=== PATIENT | male | born 1940 | race Caucasian/White ===

== ENCOUNTER 2017-06-17 11:24 | Inpatient (IN) | payer MEDICARE, OTHER ==
[2017-06-17] MEDS ORDERED: methylPREDNISolone Sod Succ/PF 125 MG/2 ML VIAL ONE (12:15)
[2017-06-17 12:25] LABS: #Lymphocytes 0.8 thou/uL (1.20-3.40); #Monocytes 1.6 thou/uL (0.11-0.59); #Neutrophils 14.8 thou/uL (1.40-6.50); %Basophils 0.1 % (0.0-1.0); %Eosinophils 0.2 % (0.0-10.0); %Lymphocytes 4.5 % (21.0-51.0); %Monocytes 9.4 % (0.0-10.0); %Neutrophils 85.8 % (42.0-75.0); Hemoglobin 12.5 g/dL (14.0-18.0); Mean Corpuscular HGB CONC 32.7 g/dL (32.0-36.0); Mean Corpuscular Hemoglobin 30.1 pg (27.0-31.0); Mean Corpuscular Volume 92.1 fl (80.0-94.0); Mean Platelet Volume 6.8 fL (7.4-10.4); Platelet Count 347 thou/uL (130-400); RBC Distribution Width 11.9 % (11.5-14.5); Red Blood Cell (RBC) Count 4.16 mill/uL (4.70-6.10); White Blood Cell (WBC) Count 17.2 thou/uL (4.8-10.8)
[2017-06-17 12:49] LABS: ALT (SGPT) 20 U/L (8-55); AST (SGOT) 30 U/L (5-34); Albumin 3.6 g/dL (3.4-4.8); Alkaline Phosphatase 73 U/L (40-150); Anion Gap 15 mmol/L (10-20); BUN (Urea Nitrogen) 19 mg/dL (8.4-25.7); Bilirubin, Total 0.5 mg/dL (0.2-1.2); CK (CPK) 133 U/L (30-200); CKMB 3.3 ng/mL (0-6.6); Calc. Creatinine Clearance 0 mL/min (70-130); Calcium 9.2 mg/dL (7.8-10.44); Carbon Dioxide 26 mmol/L (23-31); Chloride 94 mmol/L (98-107); Estimated GFR-MDRD 65; Globulin 3.8 g/dL (2.4-3.5); Glucose 126 mg/dL (83-110); Potassium 4.7 mmol/L (3.5-5.1); Protein, Total 7.4 g/dL (5.8-8.1); Sodium 130 mmol/L (136-145); Troponin I 0.028 ng/mL (< 0.028)
--- NOTE | 2017-06-17 12:52 | RAD ---
CHEST 1 VIEW: HISTORY: Dyspnea. COMPARISON: Chest radiograph 02/04/16. FINDINGS: Chronic-appearing markings in the lung bases. No pneumothorax. No acute osseous abnormality. Cardiac silhouette and mediastinal contours are within normal limits. IMPRESSION: Chronic lung changes. No acute intrathoracic abnormality. POS: [facility]
--- NOTE | 2017-06-17 17:00 | HP ---
PRIMARY CARE PHYSICIAN: Dr. John Nix. PRIMARY CLINICAL MASSAGE THERAPIST: Dr. Villalta. REASON FOR ADMISSION: COPD exacerbation. HISTORY OF PRESENT ILLNESS: A 77-year-old male who has underlying history of COPD who presented to emergency room with the complaint of increasing shortness of breath. Patient reports that he is sick for the last 10 days. He was having increasing shortness of breath, cough, and upper respiratory symptoms. Patient reports that at this time, he was exposed to pollen and after that allergy started. He was using Claritin and Benadryl p.r.n. basis. He was using his inhaler and nebulizer therapy at home, but symptoms were not improving. Day by day, he was getting worse. He was having fever of up to T- maximum 101 at one time, but most of the days, his fever was running in 100 to 99. The patient was not able to get deep breath in and he was feeling more and more short of breath. Symptoms were getting more and more worse during daytime as well as nighttime and that is why he decided to come to emergency room for evaluation. Patient reports that he is normally able to ambulate without any getting shortness of breath, but for last 5 days he is having difficulty ambulation because of shortness of breath. He denies any hemoptysis. He denies any lower extremity edema. He denies any calf tenderness. He denies any chest pain. He denies any hemoptysis. He denies any nausea, vomiting, diarrhea, UTI symptoms. He denies any abdominal pain, hematochezia, or melena. REVIEW OF SYSTEMS: The following complete review of systems was negative, unless otherwise mentioned in the HPI or below: Constitutional: Weight loss or gain, ability to conduct usual activities. Skin: Rash, itching. Eyes: Double vision, pain. ENT/Mouth: Nose bleeding, neck stiffness, pain, tenderness. Cardiovascular: Palpitations, dyspnea on exertion, orthopnea. Respiratory: Shortness of breath, wheezing, cough, hemoptysis, fever or night sweats. Gastrointestinal: Poor appetite, abdominal pain, heartburn, nausea, vomiting, constipation, or diarrhea. Genitourinary: Urgency, frequency, dysuria, nocturia. Musculoskeletal: Pain, swelling. Neurologic/Psychiatric: Anxiety, depression. Allergy/Immunologic: Skin rash, bleeding tendency. Please see my HPI for pertinent positive and negative. All other review of systems reviewed and negative except as mentioned in the HPI. ALLERGIES: No known drug allergy. CURRENT HOME MEDICATIONS: ProAir HFA 2 puffs q.6 hourly p.r.n., aspirin 81 mg p.o. daily, Pulmicort nebulization twice daily, enalapril with hydrochlorothiazide 10/25 one tablet p.o. daily, formoterol 20 mcg nebulization b.i.d., DuoNeb q.6 hourly, Crestor 20 mg p.o. at bedtime, Flomax 0.4 mg p.o. daily. PAST MEDICAL HISTORY: Hypertension, COPD, chronic respiratory failure using oxygen on as needed basis, hypertension, colon cancer, history of hemorrhoid and coronary artery disease. PAST SURGICAL HISTORY: Cardiac catheterization with stent placement, colon cancer removed, hernia repair, bilateral cataract surgery. PAST PSYCHIATRIC HISTORY: Reviewed and negative. SOCIAL HISTORY: Patient is . He is a former smoker. He quit smoking several years ago. He denies any alcohol abuse. He denies any other illicit drug abuse. FAMILY HISTORY: Negative for GI malignancy. Coronary artery disease runs among several family members. No family history of stroke. EMERGENCY ROOM COURSE: Patient is given IV fluid, Solu-Medrol 125 mg, Levaquin 750 mg, DuoNeb therapy. PHYSICAL EXAMINATION: VITAL SIGNS: On arrival, blood pressure 159/66, pulse 104, respiratory rate 25 , temperature 99.1, saturation 99% and weight 72.5 kilograms. GENERAL: The patient is currently alert, awake, no obvious acute distress. HEAD: Normocephalic, atraumatic. EYES: Pupils round, reactive to light. Extraocular muscle intact. ENT: Oropharynx within normal limits. Moist mucous membranes. No oral lesion , no pharyngeal erythema, no exudate. NECK: Supple, no JVD, no thyromegaly, no carotid bruit, no meningeal signs of irritation. LUNGS: End expiratory wheezing heard. No accessory muscles of respiration in use. Air entry reduced on both sides. CARDIAC: S1 and S2 regular. No murmur, no gallop, no rub. ABDOMEN: Soft, bowel sounds present, nontender, nondistended. No organomegaly , no mass, no suprapubic tenderness. BACK: Examination unremarkable, no CVA tenderness. EXTREMITIES: Upper extremity passive movements of all joints are normal. Lower extremities: No edema. Good peripheral pulsation. SKIN: No skin rash. HEMATOLOGICAL SYSTEM: No lymphadenopathy. PSYCHIATRIC: Normal affect. IMAGING DATA AND SIGNIFICANT LABORATORY DATA: 1. EKG showing sinus tachycardia, incomplete right bundle branch block pattern , nonspecific ST-T changes. 2. Chest x-ray based on my review, chronic lung changes, COPD type of changes, but no acute process. 3. CBC: WBC is 17.2, hemoglobin 12.5, platelets 347 with left shift. 4. BMP: Sodium 130, potassium 4.7, chloride 94, carbon dioxide 26, BUN 19, creatinine 1.11, glucose 126, calcium 9.2. 5. LFT: AST 30, ALT 20, alkaline phosphatase 73, albumin is 3.6. CK 133, CK- MB 3.3, troponin I 0.028, BNP 33.0. ASSESSMENT AND PLAN/IMPRESSION: 1. Acute on chronic obstructive pulmonary disease exacerbation. The patient's chronic obstructive pulmonary disease flareup is caused by allergy/upper respiratory infection. At this point, patient will be admitted to telemetry floor. We will continue DuoNeb q.4 hourly and p.r.n. basis Solu-Medrol 40 mg IV q.6 hourly, Pulmicort nebulization twice daily and Dulera two puffs inhalation b.i.d. We will also continue empiric antibiotic therapy with Levaquin 750 mg IV daily and Mucinex 600 mg 3 times daily. We will also provide symptomatic treatment. We will also continue oxygen to maintain saturation above 92%. 2. Acute/chronic respiratory failure. We will continue oxygen to maintain saturation above 92%. 3. Dyslipidemia. Continue Crestor 20 mg p.o. at bedtime. 4. Benign enlargement of prostate. Continue Flomax 0.4 mg p.o. daily. 5. Hypertension. Continue enalapril 10 mg daily and hydrochlorothiazide 25 mg p.o. daily. 6. Hyponatremia likely related with hydrochlorothiazide versus chronic lung disease. We will repeat BMP tomorrow. 7. Leukocytosis, likely related with stress versus underlying infection. The patient is already on antibiotic therapy and we will repeat CBC tomorrow. 8. Deep venous thrombosis prophylaxis, Lovenox 40 mg subcu daily. 9. Gastrointestinal prophylaxis, Protonix 40 mg p.o. daily. CODE STATUS: The patient is FULL CODE. The patient's is surrogate decision maker. Disposition plan based on clinical course. We are expecting patient's stay in hospital more than 2 midnights. Plan of care discussed with the patient in detail. AVELINAD
[2017-06-17 17:04] LABS: Troponin I 0.028 ng/mL (< 0.028)
[2017-06-17] MEDS ORDERED: Mag-Al 1200 mg/1200 mg/30 ML UDCUP PO PRN (17:44)
[2017-06-17] MEDS ORDERED: hydrALAZINE 20 MG/ML VIAL SLOW IVP PRN (17:44)
[2017-06-17] MEDS ORDERED: cloNIDine 0.1 MG TAB PO PRN (17:44)
[2017-06-17] MEDS ORDERED: Milk Of Magnesia 30 ML UDCUP PO PRN (17:44)
[2017-06-17] MEDS ORDERED: Ondansetron ODT 4 MG TAB PO PRN (17:44)
[2017-06-17] MEDS ORDERED: HYDROcodone/Acetaminophen 5/325 mg Tablet PO PRN (17:44)
[2017-06-17] MEDS ORDERED: Loperamide HCl 2 MG CAP PO PRN (17:44)
[2017-06-17] MEDS ORDERED: Ondansetron HCl/PF 4 MG/2 ML Vial IVP PRN (17:44)
[2017-06-17] MEDS ORDERED: Chloraseptic Spray 180 ml Bottle PO PRN (17:44)
[2017-06-17] MEDS ORDERED: Sodium Chloride 0.65% Nasal 44 ML BOT EA NARE PRN (17:44)
[2017-06-17] MEDS ORDERED: Senokot 8.6 MG TAB PO PRN (17:44)
[2017-06-17] MEDS ORDERED: Zolpidem Tartrate 5 MG TAB PO PRN (17:44)
[2017-06-17] MEDS ORDERED: Artificial Tears 18 DROP/0.9 ML EA EYE PRN (17:44)
[2017-06-17] MEDS ORDERED: Eucerin (Mineral Oil/Petrolatum,White) 30 gm Jar TOP PRN (17:44)
[2017-06-17] MEDS ORDERED: Acetaminophen 325 MG TAB PO PRN (17:44)
[2017-06-17] MEDS ORDERED: Loratadine 10 MG TAB PO PRN (17:44)
[2017-06-17 18:13] VITALS: BMI 24.1
[2017-06-17] MEDS: Mometasone/Formoterol 120 PUFF INHALER INH SCH (18:50)
[2017-06-17] MEDS: Budesonide 0.5 MG/2 ML NEB INH SCH (18:52)
[2017-06-17] MEDS ORDERED: Sodium Chloride 0.9% 10 ML ONE (18:59)
[2017-06-17 19:24] LABS: Bilirubin Negative (Negative); Blood, Urine Negative (Negative); Clarity CLEAR (Clear); Glucose, Urine (Dipstick) Negative (Negative); Leukocyte Negative (Negative); Nitrite Negative (Negative); Protein, Urine (Dipstick) Negative (Neg-Trace); Specific Gravity, Urine 1.011 (1.002-1.036); Urobilinogen 0.2 mg/dL (0.2-1.0)
[2017-06-17 19:27] LABS: Bacteria/HPF None Seen HPF (None Seen); Hyaline Casts/LPF 0-3 HYALINE CAST LPF (0-3 Hyaline); RBC/HPF 0-3 HPF (0-3); Squamous Epithelial None Seen HPF (0-3)
[2017-06-17 19:32] LABS: Troponin I 0.019 ng/mL (< 0.028)
[2017-06-17] MEDS: guaiFENesin ER 600 MG TAB PO SCH (20:08)
[2017-06-17] MEDS: Rosuvastatin 20 MG TAB PO SCH (20:10)
[2017-06-18 05:58] LABS: #Lymphocytes 0.6 thou/uL (1.20-3.40); #Monocytes 0.4 thou/uL (0.11-0.59); #Neutrophils 8.6 thou/uL (1.40-6.50); %Eosinophils 0.2 % (0.0-10.0); %Lymphocytes 6.5 % (21.0-51.0); %Monocytes 4.2 % (0.0-10.0); %Neutrophils 89.2 % (42.0-75.0); Hemoglobin 10.7 g/dL (14.0-18.0); Mean Corpuscular HGB CONC 34.1 g/dL (32.0-36.0); Mean Corpuscular Hemoglobin 31.3 pg (27.0-31.0); Mean Corpuscular Volume 91.6 fl (80.0-94.0); Mean Platelet Volume 6.6 fL (7.4-10.4); Platelet Count 332 thou/uL (130-400); RBC Distribution Width 11.7 % (11.5-14.5); Red Blood Cell (RBC) Count 3.42 mill/uL (4.70-6.10); White Blood Cell (WBC) Count 9.6 thou/uL (4.8-10.8)
[2017-06-18 06:27] LABS: Anion Gap 9 mmol/L (10-20); BUN (Urea Nitrogen) 21 mg/dL (8.4-25.7); Calc. Creatinine Clearance 66 mL/min (70-130); Calcium 8.7 mg/dL (7.8-10.44); Carbon Dioxide 27 mmol/L (23-31); Chloride 98 mmol/L (98-107); Estimated GFR-MDRD 72; Glucose 159 mg/dL (83-110); Potassium 3.4 mmol/L (3.5-5.1); Sodium 131 mmol/L (136-145)
[2017-06-18] MEDS: Budesonide 0.5 MG/2 ML NEB INH SCH ×2 (07:37→19:10)
[2017-06-18] MEDS: Mometasone/Formoterol 120 PUFF INHALER INH SCH ×2 (07:40→19:10)
[2017-06-18] MEDS: Tamsulosin HCl 0.4 MG CAP PO SCH (08:01)
[2017-06-18] MEDS: guaiFENesin ER 600 MG TAB PO SCH ×3 (08:01→20:44)
[2017-06-18] MEDS: Enoxaparin Sodium 40 MG/0.4 ML SYRINGE SC SCH (08:09)
[2017-06-18] MEDS: Hydrochlorothiazide 25 MG TAB PO SCH (08:09)
--- NOTE | 2017-06-18 09:58 | PDOC.PN ---
- Subjective Encounter Start Date: 06/18/17 Encounter Start Time: 07:00 -: old records requested/rev Pt has cough, dyspnea, slight better but still not normal for him, no fever - Objective Resuscitation Status: Resuscitation Status FULL:Full Resuscitation MAR Reviewed: Yes Vital Signs & Weight: Vital Signs (12 hours) Temp Pulse Resp BP BP Pulse Ox 06/18/17 08:08 107/56 L 06/18/17 07:40 105 H 20 91 L 06/18/17 07:37 105 H 20 91 L 06/18/17 04:00 99 F 61 16 112/47 L 91 L 06/18/17 02:57 88 12 06/17/17 23:00 88 12 Weight Weight 163 lb 8 oz I&O: 06/17/17 06/18/17 06/19/17 06:59 06:59 06:59 Intake Total 240 Output Total 100 Balance 140 Result Diagrams: 06/18/17 05:24 06/18/17 05:24 Phys Exam - Physical Examination Constitutional: NAD HEENT: PERRLA, moist MMs, sclera anicteric Neck: no JVD, supple Respiratory: wheezing present reduced air entry Cardiovascular: RRR, no significant murmur, no rub Gastrointestinal: soft, non-tender, no distention, positive bowel sounds Musculoskeletal: no edema, pulses present Neurological: non-focal, normal sensation, moves all 4 limbs Lymphatic: no nodes Psychiatric: normal affect, A&O x 3 Skin: no rash, normal turgor Dx/Plan (1) COPD exacerbation Code(s): J44.1 - CHRONIC OBSTRUCTIVE PULMONARY DISEASE W (ACUTE) EXACERBATION Status: Acute (2) Hypokalemia Code(s): E87.6 - HYPOKALEMIA Status: Acute (3) Hyponatremia Code(s): E87.1 - HYPO-OSMOLALITY AND HYPONATREMIA Status: Acute (4) Leucocytosis Code(s): D72.829 - ELEVATED WHITE BLOOD CELL COUNT, UNSPECIFIED Status: Acute (5) BPH (benign prostatic hyperplasia) Code(s): N40.0 - BENIGN PROSTATIC HYPERPLASIA WITHOUT LOWER URINRY TRACT SYMP Status: Chronic (6) CAD (coronary artery disease) Code(s): I25.10 - ATHSCL HEART DISEASE OF [place] CORONARY ARTERY W/O ANG PCTRS Status: Chronic (7) Hypertension Code(s): I10 - ESSENTIAL (PRIMARY) HYPERTENSION Status: Chronic - Plan cont current plan of care, continue antibiotics, respiratory therapy * continue duoneb, pulmicort, solumedrol, levaquin, mucinex, * replace potassium * pulmonary consulted * medication reviewed as below * symptomatic treatment * home medication reconciled * monitor oxygen level . Review of Systems - Review of Systems Constitutional: negative: fever, chills, sweats, weakness, malaise, other Eyes: negative: Pain, Vision Change, Conjunctivae Inflammation, Eyelid Inflammation, Redness, Other Respiratory: Cough, Shortness of Breath, SOB with Excertion, Wheezing. negative : Dry, Hemoptysis, Pleuritic Pain, Sputum Cardiovascular: negative: chest pain, palpitations, orthopnea, paroxysmal nocturnal dyspnea, edema, light headedness, other Gastrointestinal: negative: Nausea, Vomiting, Abdominal Pain, Diarrhea, Constipation, Melena, Hematochezia, Other Genitourinary: negative: Dysuria, Frequency, Incontinence, Hematuria, Retention , Other Musculoskeletal: negative: Neck Pain, Shoulder Pain, Arm Pain, Back Pain, Hand Pain, Leg Pain, Foot Pain, Other Skin: negative: Rash, Lesions, Gavin, Bruising, Other - Medications/Allergies Allergies/Adverse Reactions: Allergies Allergy/AdvReac Type Severity Reaction Status Date / Time No Known Drug Allergies Allergy Verified 06/17/17 17:49 Medications: Current Medications Acetaminophen (Tylenol) 650 mg PO Q4H PRN PRN Reason: Headache/Fever or Pain Hydrocodone Bitart/Acetaminophen ([place] 5/325) 1 tab PO Q4H PRN PRN Reason: Moderate Pain (4-6) Al Hydroxide/Mg Hydroxide (Maalox) 30 ml PO Q6H PRN PRN Reason: Heartburn or Indigestion Albuterol/Ipratropium (Duoneb) 3 ml NEB [id number] [facility] Last Admin: 06/18/17 07:37 Dose: 3 ml Albuterol/Ipratropium (Duoneb) 3 ml NEB [id number] PRN PRN Reason: SOB &/or Wheezing Artificial Tears (Tears Naturale) 0 drop EA EYE PRN PRN PRN Reason: Dry Eyes Aspirin (Aspirin Chewable) 81 mg PO DAILY [facility] Last Admin: 06/18/17 08:01 Dose: 81 mg Budesonide (Pulmicort Neb Solution) 0.5 mg INH BID-RT [facility] Last Admin: 06/18/17 07:37 Dose: 0.5 mg Clonidine (Catapres) 0.1 mg PO Q4H PRN PRN Reason: Systolic BP > 180 Enalapril Maleate (Vasotec) 10 mg PO DAILY [facility] Enoxaparin Sodium (Lovenox) 40 mg SC 0900 [facility] Last Admin: 06/18/17 08:09 Dose: Not Given Finasteride (Proscar) 5 mg PO DAILY [facility] Guaifenesin (Mucinex) 600 mg PO TID [facility] Last Admin: 06/18/17 08:01 Dose: 600 mg Hydralazine HCl (Apresoline) 10 mg SLOW IVP Q4H PRN PRN Reason: Systolic BP > 180 Hydrochlorothiazide (Hydrochlorothiazide) 12.5 mg PO DAILY [facility] Last Admin: 06/18/17 08:09 Dose: Not Given Levofloxacin 750 mg/ Device 150 mls @ 100 mls/hr IVPB 1200 [facility] Loperamide HCl (Imodium) 2 mg PO PRN PRN PRN Reason: Diarrhea/Loose Stools Loratadine (Claritin) 10 mg PO DAILYPRN PRN PRN Reason: Sinus Symptoms Magnesium Hydroxide (Milk Of Magnesium) 30 ml PO DAILYPRN PRN PRN Reason: Constipation Methylprednisolone Sodium Succinate (Solu-Medrol) 40 mg IVP Q6HR [facility] Last Admin: 06/18/17 05:18 Dose: 40 mg Mineral Oil/White Petrolatum (Eucerin Cream) 0 gm TOP BIDPRN PRN PRN Reason: Dry Skin Mometasone Furoate/Formoterol Fumar (Dulera 200 Mcg/5 Mcg Inhaler) 2 puff INH BID-RT [facility] Last Admin: 06/18/17 07:40 Dose: 2 puff Ondansetron HCl (Zofran Odt) 4 mg PO Q6H PRN PRN Reason: Nausea/Vomiting Ondansetron HCl (Zofran) 4 mg IVP Q6H PRN PRN Reason: Nausea/Vomiting Pantoprazole Sodium (Protonix) 40 mg PO DAILY [facility] Last Admin: 06/18/17 08:02 Dose: 40 mg Phenol (Chloraseptic [place] 180 Ml Bot) 0 ml PO PRN PRN PRN Reason: Sore Throat Rosuvastatin Calcium (Crestor) 20 mg PO [facility] Last Admin: 06/17/17 20:10 Dose: Not Given Senna (Senokot) 2 tab PO HSPRN PRN PRN Reason: Constipation Sodium Chloride ([place] Nasal [place] 0.65%) 0 ml EA NARE QIDPRN PRN PRN Reason: Nasal Congestion Tamsulosin HCl (Flomax) 0.4 mg PO DAILY [facility] Last Admin: 06/18/17 08:01 Dose: 0.4 mg Zolpidem Tartrate (Ambien) 5 mg PO HSPRN PRN PRN Reason: Insomnia
[2017-06-18] MEDS ORDERED: Potassium Chloride 20 MEQ TAB PO SCH (10:00)
[2017-06-18] MEDS: Finasteride 5 MG TAB PO SCH (12:12)
[2017-06-18] MEDS: Rosuvastatin 20 MG TAB PO SCH (17:47)
[2017-06-19] MEDS: Mometasone/Formoterol 120 PUFF INHALER INH SCH (06:17)
[2017-06-19] MEDS: Budesonide 0.5 MG/2 ML NEB INH SCH (06:18)
[2017-06-19] MEDS: predniSONE 20 MG TAB PO SCH (08:26)
[2017-06-19] MEDS: guaiFENesin ER 600 MG TAB PO SCH ×2 (08:27→20:00)
[2017-06-19] MEDS: Enoxaparin Sodium 40 MG/0.4 ML SYRINGE SC SCH (08:28)
[2017-06-19] MEDS: Hydrochlorothiazide 25 MG TAB PO SCH (08:29)
[2017-06-19] MEDS: Tamsulosin HCl 0.4 MG CAP PO SCH (08:32)
[2017-06-19] MEDS ORDERED: Finasteride 5 MG TAB PO SCH (09:00)
--- NOTE | 2017-06-19 09:39 | CON ---
DATE OF CONSULTATION: 06/18/2017 SERVICE: Pulmonary Medicine. REASON FOR CONSULTATION: Chronic obstructive pulmonary disease exacerbation. HISTORY OF PRESENT ILLNESS: The patient is a 77-year-old white male with profound COPD. He was in his usual state of health when he had onset of increasing congestion in the face. Ultimately after a period of about a week, it went down into his chest. He started having increasing dyspnea on exertion and got to the point where he could barely make it across the room. He presented to the emergency department and was subsequently admitted for COPD exacerbation. He denies any current fevers, chills, nausea or vomiting. He did have some low grade fever. He has not had any night sweats. He is not coughing up any blood, but the character of his sputum is increased, and changed to green. PHYSICAL EXAMINATION: VITAL SIGNS: Afebrile, pulse 83, blood pressure 107/56, respirations 18, saturation 91% on 2 liters nasal cannula. GENERAL: The patient is awake, alert, no apparent distress. LUNGS: There is decreased air entry. He is not really moving enough air to appreciate adventitious sounds. HEART: Normal rate, regular. ABDOMEN: Soft, nontender, nondistended. Bowel sounds are positive. MUSCULOSKELETAL: No cyanosis or clubbing. There is no pitting in the bilateral lower extremities. NEUROLOGIC: Grossly nonfocal. PAST MEDICAL HISTORY: 1. COPD, profound. 2. Chronic hypoxic respiratory failure, on home O2. 3. Hypertension. 4. Coronary artery disease. 5. Dyslipidemia. 6. History of colon cancer. PAST SURGICAL HISTORY: 1. Percutaneous coronary intervention. 2. Hemicolectomy. 3. Hernia repair. 4. Cataract surgery, bilateral. SOCIAL HISTORY: He is . He has over 50 pack year history of smoking, but quit several years ago. He denies any alcohol or illicit drug use. There is no exposure to chemicals, drugs, asbestosis or tuberculosis. FAMILY HISTORY: Noncontributory. ALLERGIES: No known drug allergies. MEDICATIONS: List of his inpatient medications was reviewed. I made a couple of small updates at this time. LABORATORY DATA: WBC 9.6, hemoglobin 10.7, platelets 332,000. Sodium 131 and up trending, potassium 3.4. Basic metabolic profile is otherwise unremarkable. Cardiac enzymes are negative. Liver function studies are normal, BNP 33. Urinalysis is unremarkable. IMAGING: Chest x-ray demonstrates hyperexpanded lung santiago with evidence of COPD without acute cardiopulmonary abnormality. ASSESSMENT: 1. Acute on chronic hypoxic respiratory failure. 2. Chronic obstructive pulmonary disease with acute exacerbation. DISCUSSION AND PLAN: I will check a respiratory virus panel. The patient will also be initiated on Mucinex. We will continue antibiotics, nebulized medications and steroids though I deescalate him to p.o. steroids. Pulmonary and Critical Care will continue to follow. 70 minutes have been devoted to this patient in various activities. I personally reviewed all imaging studies and laboratory data noted within this document. For fifty percent of this time, I was interacting with the patient at the bedside or coordinating care with the care team. For the remainder of the time I was immediately available to the patient in the hospital unit. MORELIA
--- NOTE | 2017-06-19 10:09 | PRG ---
DATE OF SERVICE: 06/19/2017 SERVICE: Pulmonary Medicine INTERVAL HISTORY: The patient is doing great from a respiratory standpoint. He had a rough night last night, but this morning he coughed up a couple of big globs of sputum. He felt much better after this. He denies any current chest pain, nausea, vomiting, fevers or chills. PHYSICAL EXAMINATION: VITAL SIGNS: Afebrile, pulse 93, blood pressure 125/61, respirations 20, saturation 93% on 2-1/2 liters nasal cannula. GENERAL: The patient is awake, alert, in no apparent distress. LUNGS: Slight improvement in air entry today. There is a prolonged expiratory phase with wheezing present. HEART: Normal rate, regular. ABDOMEN: Soft, nontender, nondistended. Bowel sounds are positive. MUSCULOSKELETAL: No cyanosis or clubbing. There is no pitting in the bilateral lower extremities. NEUROLOGIC: Grossly nonfocal. ASSESSMENT: 1. Acute on chronic hypoxic respiratory failure. 2. Chronic obstructive pulmonary disease with acute exacerbation, improving. DISCUSSION AND PLAN: The respiratory virus panel is currently pending. From my perspective, he is stable for transition out of the hospital when he feels comfortable leaving. Until then, we will continue our nebulized medications, steroids and antibiotics. On discharge from the hospital, he will need to continue his home regimen. Symbicort, does not help Mr. Fontaine as he does not have the lung capacity to get this medication adequately. As such, the Dulera will be discontinued. MTDD
[2017-06-19] MEDS: Finasteride 5 MG TAB PO SCH (12:42)
--- NOTE | 2017-06-19 13:18 | PDOC.PN ---
- Subjective Encounter Start Date: 06/19/17 Encounter Start Time: 11:30 Patient seen and examined. No new complaints. No overnight events pt does not feel much improvement, still cough and dyspnea, no fever - Objective Resuscitation Status: Resuscitation Status FULL:Full Resuscitation MAR Reviewed: Yes Vital Signs & Weight: Vital Signs (12 hours) Temp Pulse Resp BP BP Pulse Ox 06/19/17 11:46 97.5 F L 88 22 H 127/60 92 L 06/19/17 10:01 86 18 95 06/19/17 08:29 125/61 06/19/17 08:25 97.5 F L 86 18 93 L 06/19/17 07:34 97.5 F L 93 20 125/61 93 L 06/19/17 06:19 93 18 91 L 06/19/17 06:18 93 18 91 L 06/19/17 06:17 93 18 90 L 06/19/17 03:40 98.1 F 83 16 124/60 97 Weight Weight 163 lb 8 oz I&O: 06/18/17 06/19/17 06/20/17 06:59 06:59 06:59 Intake Total 240 720 Output Total 100 325 Balance 140 720 -325 Result Diagrams: 06/18/17 05:24 06/18/17 05:24 Phys Exam - Physical Examination Constitutional: NAD HEENT: PERRLA, moist MMs, sclera anicteric Neck: no JVD, supple Respiratory: wheezing present reduced air entry Cardiovascular: RRR, no significant murmur, no rub Gastrointestinal: soft, non-tender, no distention, positive bowel sounds Musculoskeletal: no edema, pulses present Neurological: non-focal, normal sensation, moves all 4 limbs Lymphatic: no nodes Psychiatric: normal affect, A&O x 3 Skin: no rash, normal turgor Dx/Plan (1) Acute on chronic respiratory failure with hypoxia Code(s): J96.21 - ACUTE AND CHRONIC RESPIRATORY FAILURE WITH HYPOXIA Status: Acute (2) COPD exacerbation Code(s): J44.1 - CHRONIC OBSTRUCTIVE PULMONARY DISEASE W (ACUTE) EXACERBATION Status: Acute (3) Hypokalemia Code(s): E87.6 - HYPOKALEMIA Status: Acute (4) Hyponatremia Code(s): E87.1 - HYPO-OSMOLALITY AND HYPONATREMIA Status: Acute (5) Leucocytosis Code(s): D72.829 - ELEVATED WHITE BLOOD CELL COUNT, UNSPECIFIED Status: Acute (6) BPH (benign prostatic hyperplasia) Code(s): N40.0 - BENIGN PROSTATIC HYPERPLASIA WITHOUT LOWER URINRY TRACT SYMP Status: Chronic (7) CAD (coronary artery disease) Code(s): I25.10 - ATHSCL HEART DISEASE OF [place] CORONARY ARTERY W/O ANG PCTRS Status: Chronic (8) Hypertension Code(s): I10 - ESSENTIAL (PRIMARY) HYPERTENSION Status: Chronic - Plan cont current plan of care, continue antibiotics, respiratory therapy * continue current optimum medical therapy for COPD * not ready for discharge * he needs more time to recover * medication reviewed as below * symptomatic treatment. Review of Systems - Review of Systems Constitutional: negative: fever, chills, sweats, weakness, malaise, other Respiratory: Cough, Shortness of Breath, SOB with Excertion, Sputum, Wheezing. negative: Dry, Hemoptysis, Pleuritic Pain Cardiovascular: negative: chest pain, palpitations, orthopnea, paroxysmal nocturnal dyspnea, edema, light headedness, other Gastrointestinal: negative: Nausea, Vomiting, Abdominal Pain, Diarrhea, Constipation, Melena, Hematochezia, Other Genitourinary: negative: Dysuria, Frequency, Incontinence, Hematuria, Retention , Other Musculoskeletal: negative: Neck Pain, Shoulder Pain, Arm Pain, Back Pain, Hand Pain, Leg Pain, Foot Pain, Other Skin: negative: Rash, Lesions, Gavin, Bruising, Other - Medications/Allergies Allergies/Adverse Reactions: Allergies Allergy/AdvReac Type Severity Reaction Status Date / Time No Known Drug Allergies Allergy Verified 06/17/17 17:49 Medications: Current Medications Acetaminophen (Tylenol) 650 mg PO Q4H PRN PRN Reason: Headache/Fever or Pain Hydrocodone Bitart/Acetaminophen ([place] 5/325) 1 tab PO Q4H PRN PRN Reason: Moderate Pain (4-6) Al Hydroxide/Mg Hydroxide (Maalox) 30 ml PO Q6H PRN PRN Reason: Heartburn or Indigestion Albuterol/Ipratropium (Duoneb) 3 ml NEB [id number] Last Admin: 06/19/17 10:01 Dose: 3 ml Albuterol/Ipratropium (Duoneb) 3 ml NEB [id number] PRN PRN Reason: SOB &/or Wheezing Artificial Tears (Tears Naturale) 0 drop EA EYE PRN PRN PRN Reason: Dry Eyes Aspirin (Aspirin Chewable) 81 mg PO DAILY [facility] Last Admin: 06/19/17 08:28 Dose: 81 mg Clonidine (Catapres) 0.1 mg PO Q4H PRN PRN Reason: Systolic BP > 180 Enalapril Maleate (Vasotec) 10 mg PO DAILY [facility] Last Admin: 06/19/17 08:29 Dose: 10 mg Enoxaparin Sodium (Lovenox) 40 mg SC 0900 [facility] Last Admin: 06/19/17 08:28 Dose: Not Given Finasteride (Proscar) 5 mg PO 1300 [facility] Last Admin: 06/19/17 12:42 Dose: 5 mg Guaifenesin (Mucinex) 1,200 mg PO Q12HR [facility] Last Admin: 06/19/17 08:27 Dose: 1,200 mg Hydralazine HCl (Apresoline) 10 mg SLOW IVP Q4H PRN PRN Reason: Systolic BP > 180 Hydrochlorothiazide (Hydrochlorothiazide) 12.5 mg PO DAILY [facility] Last Admin: 06/19/17 08:29 Dose: Not Given Levofloxacin 750 mg/ Device 150 mls @ 100 mls/hr IVPB 1200 [facility] Last Admin: 06/19/17 12:42 Dose: 150 mls Loperamide HCl (Imodium) 2 mg PO PRN PRN PRN Reason: Diarrhea/Loose Stools Loratadine (Claritin) 10 mg PO DAILYPRN PRN PRN Reason: Sinus Symptoms Magnesium Hydroxide (Milk Of Magnesium) 30 ml PO DAILYPRN PRN PRN Reason: Constipation Mineral Oil/White Petrolatum (Eucerin Cream) 0 gm TOP BIDPRN PRN PRN Reason: Dry Skin Ondansetron HCl (Zofran Odt) 4 mg PO Q6H PRN PRN Reason: Nausea/Vomiting Ondansetron HCl (Zofran) 4 mg IVP Q6H PRN PRN Reason: Nausea/Vomiting Pantoprazole Sodium (Protonix) 40 mg PO DAILY [facility] Last Admin: 06/19/17 08:28 Dose: 40 mg Phenol (Chloraseptic [place] 180 Ml Bot) 0 ml PO PRN PRN PRN Reason: Sore Throat Prednisone (Prednisone) 40 mg PO [facility] Stop: 06/23/17 08:01 Last Admin: 06/19/17 08:26 Dose: 40 mg Rosuvastatin Calcium (Crestor) 20 mg PO [facility] Last Admin: 06/18/17 17:47 Dose: 20 mg Senna (Senokot) 2 tab PO HSPRN PRN PRN Reason: Constipation Sodium Chloride ([place] Nasal [place] 0.65%) 0 ml EA NARE QIDPRN PRN PRN Reason: Nasal Congestion Tamsulosin HCl (Flomax) 0.4 mg PO DAILY [facility] Last Admin: 06/19/17 08:32 Dose: 0.4 mg Zolpidem Tartrate (Ambien) 5 mg PO HSPRN PRN PRN Reason: Insomnia
[2017-06-19] MEDS: Rosuvastatin 20 MG TAB PO SCH (20:00)
[2017-06-20] MEDS: predniSONE 20 MG TAB PO SCH (08:00)
[2017-06-20] MEDS: guaiFENesin ER 600 MG TAB PO SCH ×2 (08:01→20:47)
[2017-06-20] MEDS: Tamsulosin HCl 0.4 MG CAP PO SCH (08:02)
[2017-06-20] MEDS: Hydrochlorothiazide 25 MG TAB PO SCH (08:02)
[2017-06-20] MEDS: Enoxaparin Sodium 40 MG/0.4 ML SYRINGE SC SCH (08:02)
--- NOTE | 2017-06-20 09:36 | PDOC.PN ---
- Subjective Encounter Start Date: 06/20/17 Encounter Start Time: 06:15 Patient seen and examined. No new complaints. No overnight events - Objective Resuscitation Status: Resuscitation Status FULL:Full Resuscitation MAR Reviewed: Yes Vital Signs & Weight: Vital Signs (12 hours) Temp Pulse Resp BP BP Pulse Ox 06/20/17 08:01 134/66 06/20/17 07:15 98.1 F 84 20 94 L 06/20/17 07:02 98.1 F 84 20 134/66 94 L 06/20/17 06:11 78 16 96 06/20/17 03:55 98.9 F 75 20 141/67 H 96 06/20/17 01:44 96 18 90 L 06/20/17 01:38 94 L 06/20/17 00:00 98.2 F 77 20 128/62 95 06/19/17 23:31 75 18 94 L Weight Weight 163 lb 8 oz I&O: 06/19/17 06/20/17 06/21/17 06:59 06:59 06:59 Intake Total 720 Output Total 850 Balance 720 -850 Result Diagrams: 06/18/17 05:24 06/18/17 05:24 Phys Exam - Physical Examination Constitutional: NAD HEENT: PERRLA, moist MMs, sclera anicteric Neck: no JVD, supple Respiratory: no wheezing, no rales, no rhonchi air entry improving Cardiovascular: RRR, no significant murmur, no rub Gastrointestinal: soft, non-tender, no distention, positive bowel sounds Musculoskeletal: no edema, pulses present Neurological: non-focal, normal sensation, moves all 4 limbs Psychiatric: normal affect, A&O x 3 Skin: no rash, normal turgor Dx/Plan (1) Acute on chronic respiratory failure with hypoxia Code(s): J96.21 - ACUTE AND CHRONIC RESPIRATORY FAILURE WITH HYPOXIA Status: Acute (2) COPD exacerbation Code(s): J44.1 - CHRONIC OBSTRUCTIVE PULMONARY DISEASE W (ACUTE) EXACERBATION Status: Acute (3) Hypokalemia Code(s): E87.6 - HYPOKALEMIA Status: Acute (4) Hyponatremia Code(s): E87.1 - HYPO-OSMOLALITY AND HYPONATREMIA Status: Acute (5) Leucocytosis Code(s): D72.829 - ELEVATED WHITE BLOOD CELL COUNT, UNSPECIFIED Status: Acute (6) BPH (benign prostatic hyperplasia) Code(s): N40.0 - BENIGN PROSTATIC HYPERPLASIA WITHOUT LOWER URINRY TRACT SYMP Status: Chronic (7) CAD (coronary artery disease) Code(s): I25.10 - ATHSCL HEART DISEASE OF [place] CORONARY ARTERY W/O ANG PCTRS Status: Chronic (8) Hypertension Code(s): I10 - ESSENTIAL (PRIMARY) HYPERTENSION Status: Chronic - Plan cont current plan of care, continue antibiotics, respiratory therapy * continue po prednisone * medication reviewed as below * symptomatic treatment * continue respiratory therapy * today will ambulate more and see how he does * expecting discharge tomorrow, pt prefers that way as well. Review of Systems - Review of Systems Constitutional: negative: fever, chills, sweats, weakness, malaise, other Eyes: negative: Pain, Vision Change, Conjunctivae Inflammation, Eyelid Inflammation, Redness, Other Respiratory: Cough, SOB with Excertion. negative: Dry, Shortness of Breath, Hemoptysis, Pleuritic Pain, Sputum, Wheezing Cardiovascular: negative: chest pain, palpitations, orthopnea, paroxysmal nocturnal dyspnea, edema, light headedness, other Gastrointestinal: negative: Nausea, Vomiting, Abdominal Pain, Diarrhea, Constipation, Melena, Hematochezia, Other Genitourinary: negative: Dysuria, Frequency, Incontinence, Hematuria, Retention , Other Musculoskeletal: negative: Neck Pain, Shoulder Pain, Arm Pain, Back Pain, Hand Pain, Leg Pain, Foot Pain, Other Skin: negative: Rash, Lesions, Gavin, Bruising, Other - Medications/Allergies Allergies/Adverse Reactions: Allergies Allergy/AdvReac Type Severity Reaction Status Date / Time No Known Drug Allergies Allergy Verified 06/17/17 17:49 Medications: Current Medications Acetaminophen (Tylenol) 650 mg PO Q4H PRN PRN Reason: Headache/Fever or Pain Hydrocodone Bitart/Acetaminophen ([place] 5/325) 1 tab PO Q4H PRN PRN Reason: Moderate Pain (4-6) Al Hydroxide/Mg Hydroxide (Maalox) 30 ml PO Q6H PRN PRN Reason: Heartburn or Indigestion Albuterol/Ipratropium (Duoneb) 3 ml NEB [id number] Last Admin: 06/20/17 06:11 Dose: 3 ml Albuterol/Ipratropium (Duoneb) 3 ml NEB [id number] PRN PRN Reason: SOB &/or Wheezing Artificial Tears (Tears Naturale) 0 drop EA EYE PRN PRN PRN Reason: Dry Eyes Aspirin (Aspirin Chewable) 81 mg PO DAILY [facility] Last Admin: 06/20/17 08:01 Dose: 81 mg Clonidine (Catapres) 0.1 mg PO Q4H PRN PRN Reason: Systolic BP > 180 Enalapril Maleate (Vasotec) 10 mg PO DAILY [facility] Last Admin: 06/20/17 08:01 Dose: 10 mg Enoxaparin Sodium (Lovenox) 40 mg SC 0900 [facility] Last Admin: 06/20/17 08:02 Dose: Not Given Finasteride (Proscar) 5 mg PO 1300 [facility] Last Admin: 06/19/17 12:42 Dose: 5 mg Guaifenesin (Mucinex) 1,200 mg PO Q12HR [facility] Last Admin: 06/20/17 08:01 Dose: 1,200 mg Hydralazine HCl (Apresoline) 10 mg SLOW IVP Q4H PRN PRN Reason: Systolic BP > 180 Hydrochlorothiazide (Hydrochlorothiazide) 12.5 mg PO DAILY [facility] Last Admin: 06/20/17 08:02 Dose: Not Given Levofloxacin 750 mg/ Device 150 mls @ 100 mls/hr IVPB 1200 [facility] Last Admin: 06/19/17 12:42 Dose: 150 mls Loperamide HCl (Imodium) 2 mg PO PRN PRN PRN Reason: Diarrhea/Loose Stools Loratadine (Claritin) 10 mg PO DAILYPRN PRN PRN Reason: Sinus Symptoms Magnesium Hydroxide (Milk Of Magnesium) 30 ml PO DAILYPRN PRN PRN Reason: Constipation Mineral Oil/White Petrolatum (Eucerin Cream) 0 gm TOP BIDPRN PRN PRN Reason: Dry Skin Ondansetron HCl (Zofran Odt) 4 mg PO Q6H PRN PRN Reason: Nausea/Vomiting Ondansetron HCl (Zofran) 4 mg IVP Q6H PRN PRN Reason: Nausea/Vomiting Pantoprazole Sodium (Protonix) 40 mg PO DAILY [facility] Last Admin: 06/20/17 08:00 Dose: 40 mg Phenol (Chloraseptic [place] 180 Ml Bot) 0 ml PO PRN PRN PRN Reason: Sore Throat Prednisone (Prednisone) 40 mg PO QAM-WM [facility] Stop: 06/23/17 08:01 Last Admin: 06/20/17 08:00 Dose: 40 mg Rosuvastatin Calcium (Crestor) 20 mg PO [facility] Last Admin: 06/19/17 20:00 Dose: 20 mg Senna (Senokot) 2 tab PO HSPRN PRN PRN Reason: Constipation Sodium Chloride ([place] Nasal [place] 0.65%) 0 ml EA NARE QIDPRN PRN PRN Reason: Nasal Congestion Tamsulosin HCl (Flomax) 0.4 mg PO DAILY [facility] Last Admin: 06/20/17 08:02 Dose: 0.4 mg Zolpidem Tartrate (Ambien) 5 mg PO HSPRN PRN PRN Reason: Insomnia
[2017-06-20] MEDS: Finasteride 5 MG TAB PO SCH (13:16)
--- NOTE | 2017-06-20 16:13 | PRG ---
DATE OF SERVICE: 06/20/2017 SERVICE: Pulmonary Medicine. INTERVAL HISTORY: The patient is doing outstanding from a respiratory standpoint. He is making good headway. He still bringing up a little bit of sputum. His breathing is much better, but he has not been very mobile about his room. He is working on increasing that as tolerated. PHYSICAL EXAMINATION: VITAL SIGNS: Afebrile, pulse 80, blood pressure 124/66, respirations 16, saturation 95% on 1-/2 lit ers nasal cannula. GENERAL: The patient is awake and alert, no apparent distress. LUNGS: Better air entry, but still decreased. There is a prolonged expiratory phase. Rhonchi and w heezing are both present. HEART: Normal rate, regular. ABDOMEN: Soft, nontender, nondistended. Bowel sounds are positive. MUSCULOSKELETAL: No cyanosis or clubbing. There is no pitting in the bilateral lower extremities. NEUROLOGIC: Grossly nonfocal. ASSESSMENT: 1. Acute on chronic hypoxic respiratory failure. 2. Chronic obstructive pulmonary disease with acute exacerbation, improving. PLAN: We will continue our antibiotics, nebulized medications and steroids. We will also continue h is Mucinex to help liberate some sputum. From my perspective, he is stable for transition home today or tomorrow. He would prefer tomorrow. He is going to work on walking a touch more today. If he i s doing better tomorrow morning, he should be discharged from the hospital. I will continue to follo w as long as he remains in-house.
[2017-06-20] MEDS: Rosuvastatin 20 MG TAB PO SCH (20:47)
[2017-06-21] MEDS: guaiFENesin ER 600 MG TAB PO SCH (08:03)
[2017-06-21] MEDS: predniSONE 20 MG TAB PO SCH (08:03)
[2017-06-21] MEDS: Hydrochlorothiazide 25 MG TAB PO SCH (08:04)
[2017-06-21] MEDS: Tamsulosin HCl 0.4 MG CAP PO SCH (08:05)
[2017-06-21] MEDS: Enoxaparin Sodium 40 MG/0.4 ML SYRINGE SC SCH (08:05)
[2017-06-21 10:13] VITALS: TEMP 97.9
--- NOTE | 2017-06-21 10:58 | DIS ---
DATE OF ADMISSION: 06/17/2017 DATE OF DISCHARGE: 06/21/2017 PRIMARY CARE PHYSICIAN: Dr. John Nix. DISCHARGE DISPOSITION: Home. PRIMARY DISCHARGE DIAGNOSES: 1. Acute on chronic respiratory failure with hypoxia. 2. Chronic obstructive pulmonary disease exacerbation. 3. Hypokalemia, corrected. 4. Hyponatremia, corrected. 5. Leukocytosis, resolved. SECONDARY DISCHARGE DIAGNOSES: Benign enlargement of prostate, coronary artery disease, hypertension , chronic obstructive pulmonary disease, chronic respiratory failure on home oxygen. PRIMARY PROCEDURES/OPERATIONS: None. RADIOLOGICAL INVESTIGATION: Chest x-ray showed chronic changes. SIGNIFICANT LABORATORY DATA: Hemoglobin 10.7, creatinine 1.01. LFT normal. Cardiac enzymes negativ e. BNP 33. Urinalysis normal. Respiratory virus panel negative. DISCHARGE MEDICATIONS: Ventolin nebulization q.6 hourly p.r.n.; aspirin 81 mg p.o. daily; Pulmicort nebulization twice daily; enalapril with hydrochlorothiazide 10/25 one tablet p.o. daily; Proscar 5 m g p.o. daily; Perforomist 20 mcg nebulization b.i.d.; Mucinex 600 mg p.o. q.6 hourly for 7 days; Leva coty 750 mg p.o. daily for 5 days; Protonix 40 mg p.o. daily; prednisone 40 mg p.o. daily for 5 days, then 20 mg p.o. daily for 5 days, then 10 mg p.o. daily for 5 days; Crestor 20 mg p.o. at bedtime; F teddy 0.4 mg p.o. daily. CONTRAINDICATIONS: None. CODE STATUS: FULL CODE. INPATIENT CONSULTANTS: Dr. Villalta, school age lead teacher, was following while in hospital. TEST RESULTS PENDING ON DISCHARGE: None. ALLERGIES: No known drug allergy. DISCHARGE PLAN: Post hospital, the patient will follow up with Dr. Villalta as instructed. The patie nt will follow up with primary care physician. HOSPITAL COURSE: A 77-year-old male who was suffering from allergy symptoms and upper respiratory sy mptoms secondary to weather change and subsequently he was having increasing shortness of breath. He was trying his home medication, but he was not improving and his condition was getting worse and sarina t is why he came to emergency room on 06/17/2017 and I admitted in hospital. Please see my HPI for f urther detail. The patient was admitted and he was treated with Solu-Medrol, empiric antibiotic ther apy with Levaquin and frequent DuoNeb and Pulmicort nebulization therapy. Magnesium Mill Operator was consulte d while in hospital. With optimum COPD treatment, the patient's condition improved to his baseline s tatus. He has chronic respiratory failure and he was having hypoxic respiratory failure on top of th at which was corrected with the COPD treatment. Now, the patient is able to ambulate well and he is maintaining saturation well with his routine use of oxygen and is tolerating p.o. well, able to talk in full sentences and he is feeling by himself up to his baseline. Magn[employer] Mill Operator okay with discharging him today. The patient also okay to go home today. The patient is seen and examined at bedside today. His examination is completely unremarkable other than the rimma g examination showing a slightly reduced air entry, but no wheezing, no rhonchi, no accessory muscles of respiration in use. His vitals are stable. The patient will continue all his previous medicatio n. All new medication prescriptions sent to his pharmacy.
[2017-06-21 11:06] VITALS: BP 109/55
== END 2017-06-21 11:08 | disposition home or self-care (01) | DRG 189 ==
LOC: ERS 11:24 → ERHOLD 15:43 → ONC 17:39
PROVIDERS: ADMIT Internal Medicine; ATTEND Internal Medicine
DX: J96.21 Acute and chronic respiratory failure with hypoxia (principal); Z99.81 Dependence on supplemental oxygen; E87.1 Hypo-osmolality and hyponatremia; J44.1 Chronic obstructive pulmonary disease with (acute) exacerbation; J06.9 Acute upper respiratory infection, unspecified; I25.10 Atherosclerotic heart disease of native coronary artery without angina pectoris; Z95.5 Presence of coronary angioplasty implant and graft; Z87.891 Personal history of nicotine dependence; E78.5 Hyperlipidemia, unspecified; E87.6 Hypokalemia; N40.0 Benign prostatic hyperplasia without lower urinary tract symptoms; I10 Essential (primary) hypertension
CPT/HCPCS: 36415; 71045; 80048; 80053; 81001; 82553; 83880; 84484; 85025; 87633; 87798; 93005; 94640; 96361; 96365; 96366; 96375; A4216; J1650; J1956; J2920; J2930; J7506; J7620; J7626

== ENCOUNTER 2017-07-10 22:13 | Emergency (ER) | payer MEDICARE, OTHER ==
[2017-07-10 23:31] LABS: Bilirubin Negative (Negative); Blood, Urine Large (Negative); Clarity Cloudy (Clear); Glucose, Urine (Dipstick) Negative (Negative); Leukocyte Moderate (Negative); Nitrite Negative (Negative); Protein, Urine (Dipstick) 100 mg/dL (Neg-Trace); Urobilinogen 0.2 mg/dL (0.2-1.0)
[2017-07-10 23:41] LABS: Bacteria/HPF 1+ HPF (None Seen); Crystals/HPF 2+ AMORPH PHOS HPF (Negative); Hyaline Casts/LPF 0-3 HYALINE CAST LPF (0-3 Hyaline); Renal Epithelial 0-3 HPF (0-3); Squamous Epithelial 0-3 HPF (0-3)
[2017-07-11] MEDS ORDERED: cefTRIAXone\\ROCEPHIN 1 GM VIAL ONE (00:09)
[2017-07-11] MEDS ORDERED: Lidocaine 1% PF 5 ML VIAL ONE (00:09)
== END 2017-07-11 00:45 | disposition home or self-care (01) ==
LOC: SCSER 22:13
DX: N39.0 Urinary tract infection, site not specified (principal); I10 Essential (primary) hypertension; J44.9 Chronic obstructive pulmonary disease, unspecified; Z87.891 Personal history of nicotine dependence; E87.1 Hypo-osmolality and hyponatremia
CPT/HCPCS: 36415; 51701; 80048; 81003; 81015; 83935; 84300; 87086; 96372; J0696; J2001

== ENCOUNTER 2017-12-18 13:43 | Outpatient (CLI) | payer MEDICARE, OTHER ==
--- NOTE | 2017-12-18 16:25 | CT ---
LOW DOSE CT PULMONARY LUNG SCAN PERFORMED WITHOUT CONTRAST ENHANCEMENT: 12/18/17 HISTORY: 40+ year history of smoking. Patient quit approximately 15 years ago. This is done as a low dose scre ening study. Lungs show emphysematous lung changes predominantly involving the upper lobes. There is parenchymal s carring within the left upper lobe. There is a calcified granuloma in the left base. No additional pu lmonary nodules are seen. No pleural effusions identified. No significant mediastinal adenopathy is noted. There is calcification at the level of the aortic baldomero ve and fairly extensive coronary calcification seen. The visualized liver parenchyma is unremarkable. Hypodensity within the right kidney is incompletely visualized but appeared to represent a cyst on a previous 2016 CT study. IMPRESSION: Lung RADS category 1, modifier S. The modifier being applied for the presence of aortic valve and lucrecia rly extensive coronary artery calcifications. The lung screening is recommended as a one year annual followup low does screening exam. POS: [facility]
== END 2017-12-18 13:44 | disposition home or self-care (01) ==
LOC: CT 13:43
PROVIDERS: ATTEND Family Medicine
DX: Z12.2 Encounter for screening for malignant neoplasm of respiratory organs (principal); Z00.00 Encounter for general adult medical examination without abnormal findings; I25.10 Atherosclerotic heart disease of native coronary artery without angina pectoris
CPT/HCPCS: G0297

== ENCOUNTER 2018-06-21 12:47 | Observation (INO) | payer MEDICARE, OTHER ==
--- NOTE | 2018-06-21 13:23 | CT ---
FCT Brain WO Con History:Left arm numbness Comparison: None Findings: There is generalized ventricular and sulcal prominence. There is decreased attenuation to t he periventricular white matter consistent with chronic white matter change. There are no signs of in tracerebral hemorrhage or extra-axial fluid collections. The mastoid air cells and visualized sinuses are clear. Impression: No acute intracranial abnormalities. Findings telephoned to Dr. Lujan at 1320 hours.
[2018-06-21 13:37] LABS: #Basophils 0.1 thou/uL (0.0-0.2); #Eosinphils 0.2 thou/uL (0.0-0.7); #Lymphocytes 1.2 thou/uL (1.20-3.40); #Monocytes 0.8 thou/uL (0.11-0.59); #Neutrophils 4.7 thou/uL (1.40-6.50); %Basophils 1.3 % (0.0-1.0); %Lymphocytes 17.4 % (21.0-51.0); %Monocytes 10.9 % (0.0-10.0); %Neutrophils 67.4 % (42.0-75.0); Hemoglobin 12.4 g/dL (14.0-18.0); Mean Corpuscular HGB CONC 33.1 g/dL (32.0-36.0); Mean Corpuscular Hemoglobin 31.2 pg (27.0-31.0); Mean Corpuscular Volume 94.3 fL (78.0-98.0); Platelet Count 263 thou/uL (130-400); RBC Distribution Width 12.2 % (11.5-14.5); Red Blood Cell (RBC) Count 3.98 mill/uL (4.70-6.10)
[2018-06-21 13:44] LABS: PTT 26.4 SEC (22.9-36.1); Prothrombin Time 13.7 SEC (12.0-14.7)
[2018-06-21] MEDS ORDERED: Aspirin 325 MG TAB ONE (13:54)
[2018-06-21 13:57] LABS: ALT (SGPT) 23 U/L (8-55); AST (SGOT) 21 U/L (5-34); Albumin 4.1 g/dL (3.4-4.8); Alkaline Phosphatase 71 U/L (40-150); Anion Gap 9 mmol/L (10-20); BUN (Urea Nitrogen) 18 mg/dL (8.4-25.7); Bilirubin, Total 0.4 mg/dL (0.2-1.2); Calc. Creatinine Clearance 0 mL/min (70-130); Calcium 9.2 mg/dL (7.8-10.44); Carbon Dioxide 30 mmol/L (23-31); Chloride 99 mmol/L (98-107); Estimated GFR-MDRD 60; Globulin 2.7 g/dL (2.4-3.5); Glucose 110 mg/dL (83-110); Potassium 4.6 mmol/L (3.5-5.1); Protein, Total 6.8 g/dL (5.8-8.1); Sodium 133 mmol/L (136-145)
[2018-06-21 13:59] LABS: CKMB 2.5 ng/mL (0-6.6); Troponin I 0.012 ng/mL (< 0.028)
[2018-06-21] MEDS ORDERED: Acetaminophen 325 MG TAB PO PRN (14:45)
--- NOTE | 2018-06-21 16:20 | ULT ---
CAROTID ULTRASOUND: 06/21/18 HISTORY: Transient ischemic attack. COMPARISON: None. TECHNIQUE: Hyde scale, color flow, doppler imaging with spectral waveform analysis performed of the carotid and vertebral arteries. FINDINGS: RIGHT CAROTID: Significant atherosclerotic disease involving the carotid bifurcation and proximal internal carotid a rtery. Peak systolic velocity of the common carotid is 131.8 cm/s. Peak systolic velocity of the inte rnal carotid artery is 115.8 cm/s. Systolic ICA to CCA ratio is 0.8. LEFT CAROTID: There is atherosclerotic disease involving the entire common carotid artery, carotid bifurcation and internal carotid artery. Peak systolic velocity of the common carotid is 126.7 cm/s. Peak systolic ve locity of the internal carotid artery is 104.7 cm/s. Systolic ICA to CCA ratio is 0.8. Antegrade flow in bilateral vertebral arteries. IMPRESSION: Sonographic evidence of hemodynamically significant stenosis. There is moderate (50-69%) stenosis inv olving both carotid arteries. There is extensive atherosclerotic plaque. Better interrogation with CT angiogram of the neck is recommended. POS: OFF
[2018-06-21 18:25] VITALS: BMI 24.3
[2018-06-21] MEDS: Budesonide 0.5 MG/2 ML NEB NEB SCH (18:43)
--- NOTE | 2018-06-21 18:55 | HP ---
CHIEF COMPLAINT: Left upper extremity weakness. HISTORY OF PRESENT ILLNESS: The patient is a 78-year-old male with a history of hypertension, CAD status post stent x2 six or 7 years ago, history of COPD, p.r.n. oxygen dependent, BPH, who presents to the hospital with complaints of left arm weakness. The patient stated that he was sitting, watching TV, when he started feeling some weakness to his left upper extremity. The patient stated that his left arm just kept flopping back and forth without any control. He denied any other symptoms. The patient stated at this time, he called EMS and was brought into the hospital. PAST MEDICAL HISTORY: As of the followin. Hypertension. 2. COPD. 3. Colon cancer. 4. History of hemorrhoids. 5. CAD status post stents x2. 6. BPH. PAST SURGICAL HISTORY: He has had cardiac catheterization with stent placement. He has a history of colon cancer removal. He has had hernia repair. He had bilateral cataract surgery. He also has had significant injury to his left upper extremity for which he has some limited mobility in that left arm. SOCIAL HISTORY: The patient is . He is a former smoker and he uses p.r.n. oxygen. He is a full code. He denies any drug use or alcohol use. FAMILY HISTORY: Negative for any GI malignancy. However, he does have a family history of coronary artery disease among several family members. No history of stroke. ALLERGIES: HE HAS NO KNOWN DRUG ALLERGIES. MEDICATIONS: He takes, 1. Protonix 40 mg daily. 2. Aspirin 81 mg daily. 3. Crestor 20 mg daily. 4. Enalapril/hydrochlorothiazide 10-25 one p.o. daily. 5. Formoterol 20 mcg neb b.i.d. 6. Tamsulosin 0.4 p.o. daily. 7. Finasteride 5 mg p.o. daily. REVIEW OF SYSTEMS: All negative except for the ones mentioned above in the HPI. LABORATORY DATA: WBC is 7.0, hemoglobin of 12.4, hematocrit of 37.5, and platelets of 263. Chemistry; sodium of 133, potassium of 4.6, BUN of 18, creatinine 1.18. His troponin x1 was negative. The patient did have a CT head, which did not indicate any acute abnormalities. ASSESSMENT AND PLAN: The patient is a very pleasant 78-year-old male, who presents to the hospital with complaints of left upper extremity weakness. 1. Transient ischemic attack. The patient's symptoms resolved when he got to the ER. The patient has been on aspirin 81 mg. We will change it to Plavix 75 mg daily. We will change Crestor to Lipitor. We will check a lipid panel in the morning. We will get an MRI of brain. We will get an echocardiogram and carotid Dopplers. 2. History of chronic obstructive pulmonary disease, currently compensated. We will continue his p.r.n. oxygen use and his neb treatments. 3. History of hypertension. We will continue his home medications. 4. History of coronary artery disease, status post stents x2. Currently, we will continue his home medications. 5. Deep venous thrombosis prophylaxis. We will put the patient on some SCDs or Lovenox. The patient will probably need to follow up with PCP post discharge. Job ID: [id number]
[2018-06-21] MEDS ORDERED: Finasteride 5 MG TAB PO SCH (21:00)
[2018-06-21] MEDS ORDERED: Atorvastatin Calcium 40 MG TAB PO SCH (21:00)
[2018-06-22 06:13] LABS: #Eosinphils 0.3 thou/uL (0.0-0.7); #Lymphocytes 1.9 thou/uL (1.20-3.40); #Monocytes 0.7 thou/uL (0.11-0.59); #Neutrophils 3.5 thou/uL (1.40-6.50); %Basophils 0.5 % (0.0-1.0); %Lymphocytes 28.7 % (21.0-51.0); %Monocytes 11.2 % (0.0-10.0); %Neutrophils 54.7 % (42.0-75.0); Hemoglobin 11.9 g/dL (14.0-18.0); Mean Corpuscular HGB CONC 33.4 g/dL (32.0-36.0); Mean Corpuscular Hemoglobin 30.8 pg (27.0-31.0); Mean Corpuscular Volume 92.3 fL (78.0-98.0); Mean Platelet Volume 7.3 fL (7.4-10.4); Platelet Count 248 thou/uL (130-400); RBC Distribution Width 12.1 % (11.5-14.5); Red Blood Cell (RBC) Count 3.86 mill/uL (4.70-6.10); White Blood Cell (WBC) Count 6.5 thou/uL (4.8-10.8)
[2018-06-22 06:34] LABS: Anion Gap 9 mmol/L (10-20); BUN (Urea Nitrogen) 16 mg/dL (8.4-25.7); Calc. Creatinine Clearance 61 mL/min (70-130); Calcium 9.2 mg/dL (7.8-10.44); Carbon Dioxide 30 mmol/L (23-31); Cardiac Risk 3.3 (Less than 4.5); Chloride 100 mmol/L (98-107); Cholesterol 135 mg/dl (< 200 Desired); Estimated GFR-MDRD 66; Glucose 99 mg/dL (83-110); HDL Cholesterol 41 mg/dL (>60 Neg Risk); LDL Cholesterol, Calculated 77 mg/dL; Potassium 3.8 mmol/L (3.5-5.1); Sodium 135 mmol/L (136-145); Triglycerides 86 mg/dL (Less than 150)
[2018-06-22] MEDS ORDERED: Enoxaparin Sodium 40 MG/0.4 ML SYRINGE SC SCH (09:00)
[2018-06-22] MEDS ORDERED: Tamsulosin HCl 0.4 MG CAP PO SCH (09:00)
[2018-06-22] MEDS ORDERED: Clopidogrel Bisulfate 75 MG TAB PO SCH (09:00)
[2018-06-22] MEDS ORDERED: Albuterol Sulfate 2.5 mg/3 ml Neb NEB PRN (09:46)
[2018-06-22] MEDS: Budesonide 0.5 MG/2 ML NEB NEB SCH (10:26)
--- NOTE | 2018-06-22 11:36 | MRI ---
FBrain MRI without contrast: 06/22/2018 COMPARISON: None HISTORY: Sudden onset of left upper extremity tingling and numbness TECHNIQUE: Multiplanar multisequence MR imaging of the brain obtained without contrast FINDINGS: The diffusion weighted imaging demonstrates no evidence for acute infarction. The axial gra dient echo imaging demonstrates no evidence for intracranial hemorrhage. Regional bone marrow signal intensity is within normal limits. There is extensive periventricular, de ep, and subcortical white matter T2 and FLAIR hyperintensity, evidence of prominent small vessel dise ase. Arterial flow voids at axial level of skull base appear grossly unremarkable on the T2-weighted imaging. Paranasal sinuses and mastoid air cells appear grossly unremarkable. No midline shift or mas s effect. IMPRESSION: Prominent small vessel disease with no evidence for intracranial hemorrhage or acute infa rction.
--- NOTE | 2018-06-22 14:44 | CON ---
DATE OF CONSULTATION: 06/22/2018 CONSULTING PHYSICIAN: Hospitalist Services. IMPRESSION: 1. Transient ischemic attack with transient focal seizure activity. 2. Aspirin failure. 3. Moderate carotid disease bilaterally. PLAN: 1. Add Plavix 75 mg per day. 2. Continue aspirin. 3. Continue Crestor. HISTORY OF PRESENT ILLNESS: Mr. Fontaine is a 78-year-old gentleman who presented with acute onset of left arm tingling followed by uncontrolled movements that lasted about 2 to 3 minutes. His symptoms resolved spontaneously, never had anything like this before. There was no involvement of his speech. He had no loss of consciousness. There was no loss of control of the leg. He did not have a headache, nausea, vomiting, vertigo, chest pain, or shortness of breath. He presented to the ER last night with these symptoms and had a CT scan of the brain done. There was decreased attenuation in the white matter consistent with some chronic small-vessel ischemic changes. Carotid ultrasound shows bilateral moderate 50% to 69% stenosis. Laboratory studies; unremarkable CBC and serum chemistries with a cholesterol ratio of 3.3. He has otherwise been stable overnight. No further symptoms have occurred. PAST MEDICAL HISTORY: COPD, hypokalemia, hyponatremia, BPH, hypertension, CAD. ALLERGIES: NONE REPORTED. SOCIAL HISTORY: No alcohol or illicit drug use. FAMILY HISTORY: Noncontributory. MEDICATIONS: Medication list was reviewed and includes Lipitor and aspirin. Plavix has been added. REVIEW OF SYSTEMS: A 10-system review of systems is otherwise negative. PHYSICAL EXAMINATION: VITAL SIGNS: Blood pressure 130/71, pulse 64, respirations 16, and temperature 98.0. HEENT: Pupils are equal and reactive. Conjunctivae clear. Oropharynx clear. Cranium, normocephalic and atraumatic. NECK: Supple. No lymphadenopathy. EXTREMITIES: No cyanosis, clubbing, or edema. NEUROLOGIC: He is alert and appropriate. His speech is fluent and clear. Cranial nerves 2 through 12 are intact. Motor exam shows good strategy associate strength bilaterally. There was no fix or drift. Sensation was intact to light touch. [id number] and rapid alternating movements were symmetric. Gait is intact. No abnormal movements were seen. DIAGNOSTIC DATA: Imaging was reviewed. SUMMARY: A 78-year-old gentleman with acute numbness followed by uncontrolled movements of the left arm, suggestive of a transient ischemic attack. I agree with the addition of Plavix as his echocardiogram is pending. He appears otherwise stable at this point. Job ID: [id number]
[2018-06-22 15:30] VITALS: BP 151/84; TEMP 98.1
[2018-06-22] MEDS ORDERED: Arformoterol 15 MCG/2 ML NEB NEB SCH (18:30)
[2018-06-22] MEDS ORDERED: Finasteride 5 MG TAB PO SCH (21:00)
[2018-06-22] MEDS ORDERED: Non-Formulary Item 1 EACH (Formoterol Fumarate [Perforomist] 20 MCG) NEB SCH (21:00)
[2018-06-23] MEDS ORDERED: Hydrochlorothiazide 25 MG TAB PO SCH (09:00)
[2018-06-23] MEDS ORDERED: Non-Formulary Item 1 EACH (Enalapril/Hydrochlorothiazide [Enalapril-Hctz 10-25 Mg Tablet] PO SCH (09:00)
== END 2018-06-22 16:35 | disposition home or self-care (01) ==
LOC: ERS 12:47 → ERHOLD 13:45 → 2SE 17:48
PROVIDERS: ADMIT Internal Medicine; ATTEND Internal Medicine
DX: I65.23 Occlusion and stenosis of bilateral carotid arteries (principal); G40.109 Localization-related (focal) (partial) symptomatic epilepsy and epileptic syndromes with simple partial seizures, not intractable, without status epilepticus; I10 Essential (primary) hypertension; I25.10 Atherosclerotic heart disease of native coronary artery without angina pectoris; J44.9 Chronic obstructive pulmonary disease, unspecified; N40.0 Benign prostatic hyperplasia without lower urinary tract symptoms; Z95.5 Presence of coronary angioplasty implant and graft; Z85.038 Personal history of other malignant neoplasm of large intestine; Z87.891 Personal history of nicotine dependence; Z79.02 Long term (current) use of antithrombotics/antiplatelets; Z79.82 Long term (current) use of aspirin; Z79.899 Other long term (current) drug therapy; Z98.890 Other specified postprocedural states
CPT/HCPCS: 70450; 70551; 80048; 80053; 80061; 82553; 82962; 84484; 85025 ×2; 85610; 85730; 93005; 93306; 93880; 94640 ×2; 94760 ×2; 97139; 97535; 99285; G0378; 36415; 36416; J1650; J7626

== ENCOUNTER 2018-12-19 13:00 | Outpatient (CLI) | payer MEDICARE, OTHER ==
--- NOTE | 2018-12-19 13:42 | CT ---
EXAM: CT Pulmonary Lung Scan PROVIDED CLINICAL HISTORY: Personal history of tobacco use. History of COPD. Smoking history for 30 years with 2 packs per day. COMPARISON: 12/18/2017 FINDINGS: Emphysematous changes are again seen within the lungs bilaterally. Mild biapical pleural and parenchy mal scarring is again present. Linear and slight nodular densities are seen in the left upper lobe which is likely related to scarring. There is a stable tiny pleural-based subcentimeter nodule at the posterolateral left upper lobe. No discrete pulmonary nodule or mass is otherwise seen within the lungs bilaterally. No pleural effusion is identified. There are linear densities seen at the posterio r right lung base which may be related to atelectasis or mild scarring. Prominent vascular calcifications are again seen in the coronary arteries as well as involving the th oracic aorta. Calcified left hilar lymph nodes are again seen with calcified left lower lobe granuloma. There is incomplete visualization of an exophytic hypodense lesion in the superior pole right kidney as well as at the medial aspect of the left kidney. These findings were seen on prior CT abdomen in 2016. These lesions are incompletely imaged or able to be further characterized on this study. There are remote compression fractures involving several thoracic vertebral bodies stable from prior study in 2018. Multilevel degenerative changes are seen in the thoracic spine. IMPRESSION: 1. Lung RADS category 1, no suspicious pulmonary nodules seen. Continued annual screening with low-do se CT scan in 12 months is recommended. 2. Lung RADS category S, extensive vascular calcifications involving the coronary arteries and thorac ic aorta. 3. Evidence of COPD as well as chronic lung changes including scarring in the left upper lobe and rig ht lung base. 4. Incompletely imaged or evaluated hypodense lesions superior pole of each kidney which were present on prior CT abdomen in 2016. 5. Stable compression fractures thoracic spine.
== END 2018-12-19 13:01 | disposition home or self-care (01) ==
LOC: CT 13:00
PROVIDERS: ATTEND Family Medicine
DX: Z00.00 Encounter for general adult medical examination without abnormal findings (principal); Z87.891 Personal history of nicotine dependence; J44.9 Chronic obstructive pulmonary disease, unspecified; S22.009A Unspecified fracture of unspecified thoracic vertebra, initial encounter for closed fracture
CPT/HCPCS: G0297

== ENCOUNTER 2018-12-19 17:19 | Emergency (ER) | payer MEDICARE, OTHER ==
[2018-12-19 17:51] LABS: #Basophils 0.1 thou/uL (0.0-0.2); #Eosinphils 0.3 thou/uL (0.0-0.7); #Lymphocytes 2.2 thou/uL (1.20-3.40); #Monocytes 0.7 thou/uL (0.11-0.59); #Neutrophils 5.5 thou/uL (1.40-6.50); %Basophils 1.5 % (0.0-1.0); %Eosinophils 3.2 % (0.0-10.0); %Lymphocytes 24.4 % (21.0-51.0); %Monocytes 8.1 % (0.0-10.0); %Neutrophils 62.8 % (42.0-75.0); Hemoglobin 13.1 g/dL (14.0-18.0); Mean Corpuscular HGB CONC 33.4 g/dL (32.0-36.0); Mean Corpuscular Hemoglobin 29.8 pg (27.0-31.0); Mean Corpuscular Volume 89.4 fL (78.0-98.0); Mean Platelet Volume 6.5 fL (7.4-10.4); Platelet Count 259 thou/uL (130-400); RBC Distribution Width 12.5 % (11.5-14.5); Red Blood Cell (RBC) Count 4.38 mill/uL (4.70-6.10); White Blood Cell (WBC) Count 8.8 thou/uL (4.8-10.8)
[2018-12-19 18:03] LABS: ALT (SGPT) 25 U/L (8-55); AST (SGOT) 27 U/L (5-34); Albumin 4.1 g/dL (3.4-4.8); Alkaline Phosphatase 71 U/L (40-110); Anion Gap 17 mmol/L (10-20); BUN (Urea Nitrogen) 17 mg/dL (8.4-25.7); Bilirubin, Total 0.3 mg/dL (0.2-1.2); Calc. Creatinine Clearance 0 mL/min (70-130); Calcium 9.5 mg/dL (7.8-10.44); Carbon Dioxide 24 mmol/L (23-31); Chloride 102 mmol/L (98-107); Estimated GFR-MDRD 53; Globulin 3.5 g/dL (2.4-3.5); Glucose 162 mg/dL (83-110); Lipase 32 U/L (8-78); Potassium 4.2 mmol/L (3.5-5.1); Protein, Total 7.6 g/dL (5.8-8.1); Sodium 139 mmol/L (136-145)
[2018-12-19 19:51] LABS: Bilirubin Negative (Negative); Blood, Urine Negative (Negative); Clarity Clear (Clear); Glucose, Urine (Dipstick) Negative (Negative); Leukocyte Negative (Negative); Nitrite Negative (Negative); Protein, Urine (Dipstick) Negative (Neg-Trace); Urobilinogen 0.2 mg/dL (Less than 2)
[2018-12-19 21:31] LABS: Lactic Acid 0.8 mmol/L (0.5-2.2)
== END 2018-12-19 20:49 | disposition home or self-care (01) ==
LOC: SCSER 17:19
DX: E86.0 Dehydration (principal); I10 Essential (primary) hypertension; J44.9 Chronic obstructive pulmonary disease, unspecified; Z85.038 Personal history of other malignant neoplasm of large intestine; Z87.891 Personal history of nicotine dependence
CPT/HCPCS: 80053; 81003; 83605; 83690; 83880; 84443; 84484; 85025; 85379; 93005; 96360; 96361

== ENCOUNTER 2018-12-21 19:21 | Emergency (ER) | payer MEDICARE, OTHER | END 2018-12-21 19:58 | disposition home or self-care (01) | LOC: SCSER 19:21 | DX: I10 Essential (primary) hypertension (principal); J44.9 Chronic obstructive pulmonary disease, unspecified; Z87.891 Personal history of nicotine dependence | CPT/HCPCS: 99283 ==

== ENCOUNTER 2019-12-18 18:38 | Inpatient (IN) | payer MEDICARE, OTHER ==
[~2019-12-18 18:38] MED LIST: Iopamidol-370 76% 500 ML 1 ML ONE
[2019-12-18 19:26] LABS: #Lymphocytes 0.7 thou/uL (1.20-3.40); #Neutrophils 12.7 thou/uL (1.40-6.50); %Basophils 0.3 % (0.0-1.0); %Eosinophils 0.1 % (0.0-10.0); %Lymphocytes 4.6 % (21.0-51.0); %Monocytes 6.9 % (0.0-10.0); %Neutrophils 88.1 % (42.0-75.0); Hemoglobin 14.5 g/dL (14.0-18.0); Mean Corpuscular Hemoglobin 30.8 pg (27.0-31.0); Mean Corpuscular Volume 93.6 fL (78.0-98.0); Mean Platelet Volume 7.9 fL (7.4-10.4); Platelet Count 281 thou/uL (130-400); RBC Distribution Width 12.5 % (11.5-14.5); Red Blood Cell (RBC) Count 4.71 mill/uL (4.70-6.10); White Blood Cell (WBC) Count 14.4 thou/uL (4.8-10.8)
[2019-12-18] MEDS ORDERED: Ondansetron PF 4 MG/2 ML Vial ONE (19:44)
[2019-12-18 19:48] LABS: ALT (SGPT) 23 U/L (8-55); AST (SGOT) 26 U/L (5-34); Albumin 4.4 g/dL (3.4-4.8); Alkaline Phosphatase 85 U/L (40-110); Anion Gap 16 mmol/L (10-20); BUN (Urea Nitrogen) 17 mg/dL (8.4-25.7); Bilirubin, Total 0.5 mg/dL (0.2-1.2); Calc. Creatinine Clearance 0 mL/min (70-130); Calcium 9.9 mg/dL (7.8-10.44); Carbon Dioxide 28 mmol/L (23-31); Chloride 100 mmol/L (98-107); Estimated GFR-MDRD 57; Globulin 3.7 g/dL (2.4-3.5); Glucose 165 mg/dL (83-110); Lipase 35 U/L (8-78); Protein, Total 8.1 g/dL (5.8-8.1); Sodium 140 mmol/L (136-145)
--- NOTE | 2019-12-18 20:22 | CT ---
CT Abdomen Pelvis W Con HISTORY: Abdominal pain, nausea, vomiting and diarrhea. Previous history of colon cancer COMPARISON: 01/31/2016 FINDINGS: The lung bases are unremarkable. The liver, spleen, pancreas and adrenal glands are normal. No calcif ied gallstones are seen. There are renal cysts. No free air, free fluid or lymphadenopathy seen in the abdomen or pelvis. There are vascular calcifications without evidence of aneurysmal dilatation of the abdominal aorta. There are degenerative changes in the spine. There is compression of multiple vertebrae in the spine. The small bowel loops are dilated with transition point in the distal ileum. There is colonic diverti culosis. IMPRESSION: Findings are suspicious for small bowel obstruction.
[2019-12-18] MEDS ORDERED: Benzocaine 20% Spray 60 ML CAN ONE (21:55)
[2019-12-18] MEDS ORDERED: Morphine 2 MG/ML VIAL SLOW IVP PRN (22:57)
[2019-12-18] MEDS ORDERED: Ondansetron PF 4 MG/2 ML Vial IVP PRN (22:57)
--- NOTE | 2019-12-18 23:08 | PDOC.HHP ---
Hospitalist HPI - History of Present Illness Abdominal pain History of Present Illness: 79-year-old gentleman with a history of COPD, colon cancer status post partial colectomy, history of hemorrhoids, history of coronary artery disease presented emergency department with a complaint of abdominal pain of onset 2 days ago. Patient states that his last bowel movement was yesterday in the morning and it was a small hard stool. He vomited once in the emergency department. He denied any fever or chills. He denied any melena or hematemesis. CT abdomen and pelvis done in the ED demonstrated small bowel dilatation with a transition point in the ileum indicating small bowel obstruction. General surgery-Dr. Srivastava was contacted who recommended NG tube insertion and hospitalization for further management. Patient seen wheezing. At baseline he uses 2 L of oxygen by nasal cannula at home for chronic respiratory failure. Hospitalist ROS - Review of Systems Other: Except as documented, all other systems reviewed and negative. Hospitalist History - Past Medical History Cardiac: reports: CAD, HTN Pulmonary: reports: COPD Gastrointestinal: reports: Hemorrhoids Heme/Onc: reports: Cancer (History of colon cancer) Renal/: reports: Benign prostatic enlarg. - Past Surgical History Past Surgical History: reports: Other (History of partial colectomy.) - Family History Family History: reports: cardiac disorder - Social History Smoking Status: Former smoker Alcohol: reports: None Drugs: reports: none Living Situation: With Family - Exam General Appearance: NAD, awake alert Eye: PERRL, anicteric sclera ENT: normocephalic atraumatic, no oropharyngeal lesions, moist mucosa Neck: supple, symmetric, no JVD, no thyromegaly Heart: RRR, no murmur, no gallops Respiratory: rhonchi (Mild scattered rhonchi) Respiratory - other findings: Diminished breath sounds bilaterally. Gastrointestinal: soft, non-tender, non-distended Gastrointestinal - other findings: Hyperactive bowel sounds Extremities: no cyanosis, no edema Skin: normal turgor Neurological: cranial nerve grossly intact, no focal deficits Musculoskeletal: normal tone, normal strength Psychiatric: normal affect, A&O x 3 Hospitalist Results - Labs Result Diagrams: 12/18/19 19:03 12/18/19 19:03 Lab results: WBC 14.4 thou/uL (4.8-10.8) H 12/18/19 19:03 Hgb 14.5 g/dL (14.0-18.0) 12/18/19 19:03 Hct 44.1 % (42.0-52.0) 12/18/19 19:03 MCV 93.6 fL (78.0-98.0) 12/18/19 19:03 Plt Count 281 thou/uL (130-400) 12/18/19 19:03 Neutrophils % 88.1 % (42.0-75.0) H 12/18/19 19:03 Sodium 140 mmol/L (136-145) 12/18/19 19:03 Potassium 4.0 mmol/L (3.5-5.1) 12/18/19 19:03 Chloride 100 mmol/L (98-107) 12/18/19 19:03 Carbon Dioxide 28 mmol/L (23-31) 12/18/19 19:03 BUN 17 mg/dL (8.4-25.7) 12/18/19 19:03 Creatinine 1.24 mg/dL (0.7-1.3) 12/18/19 19:03 Glucose 165 mg/dL (83-110) H 12/18/19 19:03 Calcium 9.9 mg/dL (7.8-10.44) 12/18/19 19:03 Total Bilirubin 0.5 mg/dL (0.2-1.2) 12/18/19 19:03 AST 26 U/L (5-34) 12/18/19 19:03 ALT 23 U/L (8-55) 12/18/19 19:03 Alkaline Phosphatase 85 U/L (40-110) 12/18/19 19:03 Serum Total Protein 8.1 g/dL (5.8-8.1) 12/18/19 19:03 Albumin 4.4 g/dL (3.4-4.8) 12/18/19 19:03 Lipase 35 U/L (8-78) 12/18/19 19:03 - Radiology Interpretation CT scan - abdomen Status: report reviewed by me (Dilated small bowel loops with transition point in the distal ileum, colonic diverticulosis. Findings suggestive of small bowel obstruction.) Hospitalist H&P A/P - Problem (1) Small bowel obstruction Code(s): K56.609 - UNSP INTESTNL OBST, UNSP TO PARTIAL VERSUS COMPLETE OBST Status: Acute (2) History of partial colectomy Code(s): Z90.49 - ACQUIRED ABSENCE OF OTHER SPECIFIED PARTS OF DIGESTIVE TRACT Status: Acute (3) Chronic respiratory failure with hypoxia Code(s): J96.11 - CHRONIC RESPIRATORY FAILURE WITH HYPOXIA Status: Acute (4) COPD (chronic obstructive pulmonary disease) Status: Acute (5) BPH (benign prostatic hyperplasia) Code(s): N40.0 - BENIGN PROSTATIC HYPERPLASIA WITHOUT LOWER URINRY TRACT SYMP Status: Chronic (6) CAD (coronary artery disease) Code(s): I25.10 - ATHSCL HEART DISEASE OF [place] CORONARY ARTERY W/O ANG PCTRS Status: Chronic - Plan Plan: Admit to the medical floor. NG tube to suction for decompression. Consult to general surgery-Dr. Srivastava requested. Empiric antibiotics-IV Rocephin and Flagyl given leukocytosis IV hydration with normal saline. Supportive measures with IV morphine for pain and IV Zofran for vomiting. Treat COPD with DuoNeb. Titrate oxygen. Resume home inhalers.
[2019-12-18] MEDS ORDERED: Midazolam HCl 2 mg/2 ml Vial ONE (23:30)
[2019-12-18 23:59] LABS: Bilirubin Negative (Negative); Blood, Urine Negative (Negative); Clarity Clear (Clear); Glucose, Urine (Dipstick) Normal (Negative); Ketone, Urine Negative (Negative); Leukocyte Negative Leu/uL (Negative); Nitrite Negative (Negative); Protein, Urine (Dipstick) 20 mg/dL (Neg-Trace); Urobilinogen Normal mg/dL (Less than 2); pH, Urine 6.5 (5.0-9.0)
[2019-12-19] LABS: Specific Gravity, Urine Greater than 1.060 (1.002-1.036)
[2019-12-19] MEDS: Sodium Chloride 0.9% 1,000 ML IV SCH ×3 (01:15→17:47)
[2019-12-19] MEDS: cefTRIAXone\\ROCEPHIN 1 GM in Sodium Chloride 0.9% 100 ML IVPB SCH (01:15)
--- NOTE | 2019-12-19 01:27 | PDOC.FMACP ---
Advance Care Planning - Problem (1) Small bowel obstruction Status: Acute Code(s): K56.609 - UNSP INTESTNL OBST, UNSP TO PARTIAL VERSUS COMPLETE OBST (2) History of partial colectomy Status: Acute Code(s): Z90.49 - ACQUIRED ABSENCE OF OTHER SPECIFIED PARTS OF DIGESTIVE TRACT (3) Chronic respiratory failure with hypoxia Status: Acute Code(s): J96.11 - CHRONIC RESPIRATORY FAILURE WITH HYPOXIA (4) COPD (chronic obstructive pulmonary disease) Status: Acute (5) BPH (benign prostatic hyperplasia) Status: Chronic Code(s): N40.0 - BENIGN PROSTATIC HYPERPLASIA WITHOUT LOWER URINRY TRACT SYMP (6) CAD (coronary artery disease) Status: Chronic Code(s): I25.10 - ATHSCL HEART DISEASE OF [place] CORONARY ARTERY W/O ANG PCTRS - Note Summary: Advanced Care Planning was discussed. The diagnosis, prognosis and goals of care were discussed. Appropriate forms and documentation to accomplish the goals of care were discussed. All questions were answered. The Palliative Care Team will be engaged to assist with completion of any outstanding forms that are needed. Patient is full code. Time Spent (mins): 18
[2019-12-19 01:59] VITALS: BMI 24.3
[2019-12-19 05:23] LABS: #Lymphocytes 1.1 thou/uL (1.20-3.40); #Monocytes 1.1 thou/uL (0.11-0.59); #Neutrophils 8.5 thou/uL (1.40-6.50); %Basophils 0.1 % (0.0-1.0); %Eosinophils 0.3 % (0.0-10.0); %Lymphocytes 9.9 % (21.0-51.0); %Monocytes 10.4 % (0.0-10.0); %Neutrophils 79.3 % (42.0-75.0); Hemoglobin 11.6 g/dL (14.0-18.0); Mean Corpuscular HGB CONC 32.8 g/dL (32.0-36.0); Mean Corpuscular Hemoglobin 30.9 pg (27.0-31.0); Mean Corpuscular Volume 94.1 fL (78.0-98.0); Mean Platelet Volume 7.9 fL (7.4-10.4); Platelet Count 225 thou/uL (130-400); RBC Distribution Width 12.4 % (11.5-14.5); Red Blood Cell (RBC) Count 3.77 mill/uL (4.70-6.10); White Blood Cell (WBC) Count 10.7 thou/uL (4.8-10.8)
[2019-12-19] MEDS: metroNIDAZOLE 500 MG in Premix Bag 1 BAG IVPB SCH ×3 (05:26→20:28)
[2019-12-19 05:43] LABS: Anion Gap 13 mmol/L (10-20); BUN (Urea Nitrogen) 17 mg/dL (8.4-25.7); Calc. Creatinine Clearance 57 mL/min (70-130); Calcium 8.5 mg/dL (7.8-10.44); Carbon Dioxide 25 mmol/L (23-31); Chloride 104 mmol/L (98-107); Estimated GFR-MDRD 64; Glucose 124 mg/dL (83-110); Sodium 138 mmol/L (136-145)
[2019-12-19] MEDS: Heparin 5,000 UNITS/ML VIAL SC SCH ×3 (08:20→20:29)
[2019-12-19] MEDS ORDERED: Famotidine/PF 20 mg/2ml Vial SLOW IVP SCH (09:00)
--- NOTE | 2019-12-19 11:34 | PDOC.HOSPP ---
- Subjective Encounter Date: 12/19/19 Encounter Time: 10:00 Subjective: no overnight events. This morning, abdominal distention resolved after NGT placement. Passing gas for the first time since admission. COmplains of mildly sore throat since placement of NGT, otherwise no compaiunts. - Objective Vital Signs & Weight: Vital Signs (12 hours) Temp Pulse Resp BP Pulse Ox 12/19/19 07:44 98.1 F 73 18 121/63 97 12/19/19 05:11 98.6 F 86 16 126/70 98 12/19/19 03:07 96 12/19/19 03:02 75 16 96 12/19/19 01:00 98 12/19/19 00:50 98.7 F 75 16 134/66 98 Weight Weight 160 lb 0.889 oz I&O: 12/18/19 12/19/19 12/20/19 06:59 06:59 06:59 Intake Total 550 Output Total 750 Balance -200 Result Diagrams: 12/19/19 04:41 12/19/19 04:41 Hospitalist ROS - Review of Systems Constitutional: denies: chills, sweats Respiratory: denies: cough, shortness of breath Cardiovascular: denies: chest pain, palpitations, orthopnea, paroxysmal noc. dyspnea Gastrointestinal: reports: constipation. denies: nausea, vomiting, abdominal pain, melena, hematochezia Genitourinary: denies: dysuria, hematuria - Medication Medications: Active Medications Generic Name Dose Route Start Last Admin Trade Name Freq PRN Reason Stop Dose Admin Albuterol/Ipratropium 3 ml 12/19/19 01:00 12/19/19 03:02 Ipratropium/Albuterol Sulfate 3 Ml Neb NEB 3 ml [id number] VIPUL Administration Famotidine 20 mg 12/19/19 09:00 12/19/19 08:34 Famotidine/Pf 20 Mg/2ml Vial SLOW IVP 20 mg Q12HR VIPUL Administration Heparin Sodium (Porcine) 5,000 units 12/19/19 09:00 12/19/19 08:20 Heparin 5,000 Units/Ml Vial SC Not Given TID VIPUL Sodium Chloride 1,000 mls @ 100 mls/hr 12/18/19 23:00 12/19/19 08:36 Normal Saline 0.9% IV 1,000 mls .Q10H VIPUL Administration Metronidazole 500 mg/ Device 100 mls @ 100 mls/hr 12/19/19 06:00 12/19/19 05:26 IVPB 100 mls Q8HR VIPUL Administration Ceftriaxone Sodium 1 gm/ 100 mls @ 200 mls/hr 12/18/19 23:59 12/19/19 01:15 Sodium Chloride IVPB 100 mls Q24HR VIPUL Administration - Exam General Appearance: NAD, awake alert ENT - other findings: NGT in place Neck: no JVD Heart: RRR, no murmur, no gallops, no rubs Respiratory: CTAB, no wheezes, no rales, no ronchi Gastrointestinal: soft, non-tender, non-distended, diminished bowl sounds Gastrointestinal - other findings: periumbilical fluctuating swelling. Could not appreciate hernia Extremities: no edema Psychiatric: normal affect, normal behavior, A&O x 3 Hosp A/P - Plan (1) Small bowel obstruction Code(s): K56.609 - UNSP INTESTNL OBST, UNSP TO PARTIAL VERSUS COMPLETE OBST Status: Acute (2) History of partial colectomy Code(s): Z90.49 - ACQUIRED ABSENCE OF OTHER SPECIFIED PARTS OF DIGESTIVE TRACT Status: Acute (3) Chronic respiratory failure with hypoxia Code(s): J96.11 - CHRONIC RESPIRATORY FAILURE WITH HYPOXIA Status: Acute (4) COPD (chronic obstructive pulmonary disease) Status: Acute (5) BPH (benign prostatic hyperplasia) Code(s): N40.0 - BENIGN PROSTATIC HYPERPLASIA WITHOUT LOWER URINRY TRACT SYMP Status: Chronic (6) CAD (coronary artery disease) Code(s): I25.10 - ATHSCL HEART DISEASE OF [place] CORONARY ARTERY W/O ANG PCTRS Status: Chronic - Plan Plan: no bowel compromise at this point obstipation resolved possible etiologies adhesions considering history of colon resection, tumor, d iverticulitis considering findgins of diverticulosis and elevated white count pending evaluation by surgery continue NGT; continue ABx full code GI PPx: no Ix DVT PPx: lovenox
[2019-12-19] MEDS ORDERED: Chloraseptic Spray 180 ml Bottle PO PRN (13:44)
[2019-12-19] MEDS ORDERED: Cepastat Lozenges 1 LOZ PO PRN (13:44)
--- NOTE | 2019-12-19 14:17 | CON ---
DATE OF CONSULTATION: 12/19/2019 REASON FOR CONSULT: Small bowel obstruction. HISTORY OF PRESENT ILLNESS: Mr. Fontaine is a 79-year-old man who I have seen previously for right-sided colon cancer and ventral hernia. He has multiple medical issues including coronary artery disease and severe COPD, which is now oxygen dependent. He states that he has been on oxygen pretty much continuously for the past year at 2 L per nasal cannula. He came to the emergency room with a 2-day history of abdominal pain. It started Sunday and got really bad on Sunday night. He had increasing nausea and pain and came to the emergency room last night. He had one episode of emesis which was nonbloody and non coffee-ground. He states that he had a bowel movement the day before yesterday, which was unremarkable. He states that he is feeling much better since having the NG tube placed in the emergency room and that he has passed some gas today. He has not ambulated in the joe yet. He had a CT scan performed in the emergency room with some distally decompressed loops of small bowel and proximal dilation consistent with small bowel obstruction. PAST MEDICAL HISTORY: Coronary artery disease, status post stenting; hypertension; severe COPD, now oxygen dependent; colon cancer, status post right hemicolectomy and benign prostatic hypertrophy. PAST SURGICAL HISTORY: Right hemicolectomy and ventral incisional hernia repair. FAMILY HISTORY: Heart disease. SOCIAL HISTORY: He is a former smoker but has not smoked in many years. He does not have any history of alcohol or drug abuse. REVIEW OF SYSTEMS: Ten system review of systems is negative except per HPI. His shortness of breath is at its baseline, although he states that he was more than usually short of breath when he came to the emergency room. His nausea has resolved and he is now pain free. PHYSICAL EXAMINATION: VITAL SIGNS: Patient has been afebrile since admission. Heart rate 73, respirations 18, 97% saturated on 2 L nasal cannula, blood pressure 121/63. HEENT: Unremarkable. Pupils are equal and extraocular movements are intact. Facial movements are symmetric. NECK: Supple without lymphadenopathy or thyroid nodules. HEART: Regular in its rate and rhythm. He does have a notable systolic murmur, which is audible over the entire precordium, but louder on the left and radiates to the axilla. This is pansystolic. LUNGS: Breath sounds are diminished bilaterally with both wheezes and crackles. ABDOMEN: Soft, nontender, nondistended without palpable masses or hernias. He does have bowel sounds present. EXTREMITIES: Warm, well perfused without significant edema. NEUROLOGIC: No focal deficits. PSYCHIATRIC: Alert, oriented and appropriate with normal affect. LABORATORY DATA: White count is normal at 10.7, hematocrit 35, platelets 225. He does have a little bit of left shift. Electrolytes are unremarkable. Glucose is mildly elevated at 124. LFTs yesterday were normal. I have reviewed the CT images and I agree with the written report. His ileocolic anastomosis appears to be widely patent. ASSESSMENT: Small bowel obstruction, improved, status post NG placement and decompression. He has had about 450 mL of bilious NG output in the past 12 hours. His NG tube is something his symptoms have improved. I have recommended continued bowel rest and NG decompression today. If he continues to improve, then a Gastrografin small-bowel follow-through will be obtained tomorrow. If he has worsening symptoms, then surgery will be considered, but currently he is stable for conservative management. If he does require surgery, I would recommend repeating an echocardiogram. His last echocardiogram was a [id number]-half ago and he had moderate to severe aortic stenosis at that time. I have not seen the patient in several years. I did not previously note such a prominent murmur. He does not have any history of syncope, angina or heart failure, however. Job ID: [id number]
[2019-12-19] MEDS ORDERED: FLU VACC QS2020-21(65YR UP)/PF 240 MCG/0.7 ML SYRINGE IM ONE (21:00)
[2019-12-20] MEDS: cefTRIAXone\\ROCEPHIN 1 GM in Sodium Chloride 0.9% 100 ML IVPB SCH ×2 (00:31→23:40)
[2019-12-20] MEDS: Sodium Chloride 0.9% 1,000 ML IV SCH ×2 (00:31→14:15)
[2019-12-20 05:46] LABS: #Basophils 0.1 thou/uL (0.0-0.2); #Eosinphils 0.2 thou/uL (0.0-0.7); #Lymphocytes 1.2 thou/uL (1.20-3.40); #Monocytes 0.8 thou/uL (0.11-0.59); %Basophils 0.7 % (0.0-1.0); %Eosinophils 2.7 % (0.0-10.0); %Lymphocytes 14.3 % (21.0-51.0); %Neutrophils 72.3 % (42.0-75.0); Hemoglobin 10.8 g/dL (14.0-18.0); Mean Corpuscular HGB CONC 32.3 g/dL (32.0-36.0); Mean Corpuscular Hemoglobin 30.5 pg (27.0-31.0); Mean Corpuscular Volume 94.4 fL (78.0-98.0); Mean Platelet Volume 7.7 fL (7.4-10.4); Platelet Count 190 thou/uL (130-400); RBC Distribution Width 12.2 % (11.5-14.5); Red Blood Cell (RBC) Count 3.54 mill/uL (4.70-6.10); White Blood Cell (WBC) Count 8.3 thou/uL (4.8-10.8)
[2019-12-20] MEDS: metroNIDAZOLE 500 MG in Premix Bag 1 BAG IVPB SCH ×3 (06:03→21:07)
[2019-12-20 06:05] LABS: Anion Gap 14 mmol/L (10-20); BUN (Urea Nitrogen) 17 mg/dL (8.4-25.7); Calc. Creatinine Clearance 70 mL/min (70-130); Calcium 7.9 mg/dL (7.8-10.44); Carbon Dioxide 23 mmol/L (23-31); Chloride 110 mmol/L (98-107); Estimated GFR-MDRD 81; Glucose 99 mg/dL (83-110); Potassium 3.7 mmol/L (3.5-5.1); Sodium 143 mmol/L (136-145)
--- NOTE | 2019-12-20 09:08 | RAD ---
KUB: HISTORY: Small bowel obstruction. COMPARISON: 12/18/2019 CT examination. FINDINGS: There is improvement to the dilated small bowel loops as compared to that prior examination. Some of these loops still appear distended but more fluid-filled. Arthritic changes of the spine and athero sclerotic changes are noted. IMPRESSION: Improving small bowel obstruction. POS: OFF
[2019-12-20] MEDS: Enoxaparin Sodium 30 MG/0.3 ML SYRINGE SC SCH (09:22)
--- NOTE | 2019-12-20 11:43 | PDOC.HOSPP ---
- Subjective Encounter Date: 12/20/19 Encounter Time: 09:00 Subjective: passed a small bm this am, is passing flatus feels better, no abd pain or nausea - Objective Vital Signs & Weight: Vital Signs (12 hours) Temp Pulse Resp BP Pulse Ox 12/20/19 09:15 97 12/20/19 08:07 98.8 F 60 16 121/64 97 12/20/19 03:35 98.2 F 66 20 136/67 94 L 12/19/19 23:54 98.0 F 68 20 124/68 94 L Weight Admit Weight 160 lb 0.88 oz Weight 160 lb 0.88 oz I&O: 12/19/19 12/20/19 12/21/19 06:59 06:59 06:59 Intake Total 550 1200 Output Total 750 950 750 Balance -200 250 -750 Result Diagrams: 12/20/19 05:16 12/20/19 05:16 Hospitalist ROS - Medication Medications: Active Medications Generic Name Dose Route Start Last Admin Trade Name Freq PRN Reason Stop Dose Admin Albuterol/Ipratropium 3 ml 12/19/19 01:00 12/20/19 06:30 Ipratropium/Albuterol Sulfate 3 Ml Neb NEB Not Given [id number] VIPUL Enoxaparin Sodium 30 mg 12/20/19 09:00 12/20/19 09:22 Enoxaparin Sodium 30 Mg/0.3 Ml Syringe SC 30 mg 0900 VIPUL Administration Sodium Chloride 1,000 mls @ 100 mls/hr 12/18/19 23:00 12/20/19 00:31 Normal Saline 0.9% IV 1,000 mls .Q10H VIPUL Administration Metronidazole 500 mg/ Device 100 mls @ 100 mls/hr 12/19/19 06:00 12/20/19 06:03 IVPB 100 mls Q8HR VIPUL Administration Ceftriaxone Sodium 1 gm/ 100 mls @ 200 mls/hr 12/18/19 23:59 12/20/19 00:31 Sodium Chloride IVPB 100 mls Q24HR VIPUL Administration Throat Lozenges 1 liset 12/19/19 13:44 12/19/19 17:43 Cepastat Lozenges 1 Liset PO 1 liset Q2H PRN Administration Sore Throat - Exam General Appearance: awake alert Eye: PERRL, anicteric sclera ENT: no oropharyngeal lesions, dry oral mucosa Neck: supple, no JVD Heart: RRR, murmur present Respiratory: no wheezes, no rales Gastrointestinal: soft, non-tender, non-distended, normal bowel sounds, no guard ing, no rigidity Extremities: no cyanosis, no edema Neurological: cranial nerve grossly intact, no focal deficits Psychiatric: normal affect, A&O x 3 Hosp A/P (1) Small bowel obstruction Code(s): K56.609 - UNSP INTESTNL OBST, UNSP TO PARTIAL VERSUS COMPLETE OBST Status: Acute (2) COPD (chronic obstructive pulmonary disease) Status: Chronic Qualifiers: COPD type: unspecified COPD Qualified Code(s): J44.9 - Chronic obstructive pulmonary disease, unspecified (3) BPH (benign prostatic hyperplasia) Code(s): N40.0 - BENIGN PROSTATIC HYPERPLASIA WITHOUT LOWER URINRY TRACT SYMP Status: Chronic Qualifiers: Lower urinary tract symptom presence: symptoms absent Qualified Code(s): N40.0 - Benign prostatic hyperplasia without lower urinary tract symptoms (4) CAD (coronary artery disease) Code(s): I25.10 - ATHSCL HEART DISEASE OF [place] CORONARY ARTERY W/O ANG PCTRS Status: Chronic Qualifiers: Coronary Disease-Associated Artery/Lesion type: [place] artery [place] vs. transplanted heart: [place] heart (5) Hypertension Code(s): I10 - ESSENTIAL (PRIMARY) HYPERTENSION Status: Chronic Qualifiers: Hypertension type: essential hypertension Qualified Code(s): I10 - Essential (primary) hypertension - Plan improving sbo to ambulate as tolerated in hallway oral diet per gen surg adv echo for lv function and valve assesment continue ceftriaxone, flagyl, iv fluids
--- NOTE | 2019-12-20 15:04 | PRG ---
DATE OF SERVICE: 12/20/2019 SUBJECTIVE: Earlier this morning, the patient pulled out his NG tube while sleeping. It was a very difficult process getting it placed and he is refusing it being replaced. He does, however, report passing flatus and has had 2 small bowel movements. OBJECTIVE: VITAL SIGNS: His temperature is 98.3, pulse 62, blood pressure 122/67. GENERAL: He is awake, alert. ABDOMEN: Soft, nondistended, nontender. LABORATORY DATA: His white count is 8.3, H and H of 10 and 33, platelet count 190. KUB this morning shows significant improvement, but not yet normal. ASSESSMENT: Small-bowel obstruction, improving. PLAN: Ice chips only. Job ID: [id number]
[2019-12-21] MEDS: Sodium Chloride 0.9% 1,000 ML IV SCH ×3 (02:15→21:01)
[2019-12-21] MEDS: metroNIDAZOLE 500 MG in Premix Bag 1 BAG IVPB SCH ×3 (05:05→21:02)
[2019-12-21] MEDS: Arformoterol 15 MCG/2 ML NEB NEB SCH ×2 (07:16→18:57)
[2019-12-21] MEDS: Budesonide 0.5 MG/2 ML NEB NEB SCH ×2 (07:18→18:41)
[2019-12-21] MEDS: Enoxaparin Sodium 30 MG/0.3 ML SYRINGE SC SCH (08:53)
--- NOTE | 2019-12-21 10:34 | PRG ---
DATE OF SERVICE: 12/21/2019 SUBJECTIVE: The patient is doing well from his gut, but he is having an exacerbation of his COPD. The usual medications used are not hospital formulary, his bring them in. He was able to get a neb this morning and is a little bit better. He does report that his bowels are working. He has had three bowel movements. He is passing gas. He denies any abdominal pain. OBJECTIVE: VITAL SIGNS: Temperature is 98.2, pulse 71, blood pressure 120/69, O2 saturation is 95% on 2 L. On exam, he looks okay, his respiratory rate is a little high at 22. ABDOMEN: Soft, nondistended, nontender. ASSESSMENT: 1. Chronic obstructive pulmonary disease exacerbation. 2. Small-bowel obstruction, resolving. PLAN: Pulmonary consult for adjustment of medications and we will start clear liquids. Job ID: [id number]
--- NOTE | 2019-12-21 11:28 | PDOC.HOSPP ---
- Subjective Encounter Date: 12/21/19 Encounter Time: 09:30 Subjective: no nausea or abd pain is passing loose bowel movements is amb in room - Objective Vital Signs & Weight: Vital Signs (12 hours) Temp Pulse Resp BP BP Pulse Ox 12/21/19 08:50 95 12/21/19 07:16 71 24 H 95 12/21/19 07:07 98.2 F 93 16 128/69 90 L 12/21/19 05:15 117 H 22 H 143/86 H 92 L 12/20/19 23:46 97.9 F 75 18 129/71 94 L Weight Admit Weight 160 lb 0.88 oz Weight 160 lb 0.88 oz I&O: 12/20/19 12/21/19 12/22/19 06:59 06:59 06:59 Intake Total 1200 1320 1500 Output Total 950 1250 Balance 578 00 2360 Result Diagrams: 12/20/19 05:16 12/20/19 05:16 Hospitalist ROS - Medication Medications: Active Medications Generic Name Dose Route Start Last Admin Trade Name Freq PRN Reason Stop Dose Admin Albuterol/Ipratropium 3 ml 12/19/19 01:00 12/21/19 06:34 Ipratropium/Albuterol Sulfate 3 Ml Neb NEB Not Given [id number] VIPUL Arformoterol Tartrate 15 mcg 12/21/19 06:30 12/21/19 07:16 Arformoterol 15 Mcg/2 Ml Neb NEB 15 mcg BID-RT VIPUL Administration Budesonide 0.5 mg 12/21/19 06:30 12/21/19 07:18 Budesonide 0.5 Mg/2 Ml Neb NEB 0.5 mg BID-RT VIPUL Administration Enoxaparin Sodium 30 mg 12/20/19 09:00 12/21/19 08:53 Enoxaparin Sodium 30 Mg/0.3 Ml Syringe SC 30 mg 0900 VIPUL Administration Sodium Chloride 1,000 mls @ 100 mls/hr 12/18/19 23:00 12/21/19 08:53 Normal Saline 0.9% IV 1,000 mls .Q10H VIPUL Administration Metronidazole 500 mg/ Device 100 mls @ 100 mls/hr 12/19/19 06:00 12/21/19 05:05 IVPB 100 mls Q8HR VIPUL Administration Ceftriaxone Sodium 1 gm/ 100 mls @ 200 mls/hr 12/18/19 23:59 12/20/19 23:40 Sodium Chloride IVPB 100 mls Q24HR VIPUL Administration Throat Lozenges 1 liset 12/19/19 13:44 12/19/19 17:43 Cepastat Lozenges 1 Liset PO 1 liset Q2H PRN Administration Sore Throat - Exam General Appearance: awake alert Eye: PERRL, anicteric sclera ENT: no oropharyngeal lesions, moist mucosa Neck: supple, no JVD Heart: RRR, no murmur Respiratory: no wheezes, no rales, rhonchi Gastrointestinal: soft, non-tender, normal bowel sounds, no rigidity Extremities: no cyanosis, no edema Neurological: cranial nerve grossly intact, no focal deficits Psychiatric: normal affect, A&O x 3 Hosp A/P (1) Small bowel obstruction Code(s): K56.609 - UNSP INTESTNL OBST, UNSP TO PARTIAL VERSUS COMPLETE OBST Status: Acute (2) COPD (chronic obstructive pulmonary disease) Status: Chronic Qualifiers: COPD type: unspecified COPD Qualified Code(s): J44.9 - Chronic obstructive pulmonary disease, unspecified (3) BPH (benign prostatic hyperplasia) Code(s): N40.0 - BENIGN PROSTATIC HYPERPLASIA WITHOUT LOWER URINRY TRACT SYMP Status: Chronic Qualifiers: Lower urinary tract symptom presence: symptoms absent Qualified Code(s): N40.0 - Benign prostatic hyperplasia without lower urinary tract symptoms (4) CAD (coronary artery disease) Code(s): I25.10 - ATHSCL HEART DISEASE OF [place] CORONARY ARTERY W/O ANG PCTRS Status: Chronic Qualifiers: Coronary Disease-Associated Artery/Lesion type: [place] artery [place] vs. transplanted heart: [place] heart (5) Hypertension Code(s): I10 - ESSENTIAL (PRIMARY) HYPERTENSION Status: Chronic Qualifiers: Hypertension type: essential hypertension Qualified Code(s): I10 - Essential (primary) hypertension - Plan improving sbo to ambulate as tolerated in hallway oral diet per gen surg adv, on liq diet now echo shows normal ef, there is aortic valve sclerosis on obvious stenosis continue ceftriaxone, flagyl, iv fluids performist and budesonide inhalers, may use home meds, he does not like substitutions
[2019-12-21] MEDS ORDERED: Budesonide 0.5 MG/2 ML NEB INH SCH (18:30)
[2019-12-21] MEDS ORDERED: Arformoterol 15 MCG/2 ML NEB NEB SCH (18:30)
--- NOTE | 2019-12-21 18:31 | CON ---
DATE OF CONSULTATION: 12/21/2019 CONSULTING PHYSICIAN: Dr. Curran. REASON FOR CONSULTATION: Look at the patient's COPD medications. HISTORY OF PRESENT ILLNESS: Mr. Fontaine is a 79-year-old male with severe COPD with a baseline FEV1 about 0.5 L. He is a former patient of Dr. Logan Villalta. I believe the patient is about to establish a relationship with Dr. Andino in the office. He is in the hospital right now for treatment of a small-bowel obstruction. He says he is scheduled to go home tomorrow. [facility] was having trouble getting his home medications, which are Perforomist and budesonide. The patient has brought his own from home and is using it and is doing well with that and has no complaints about his breathing at this time. PAST MEDICAL HISTORY: 1. COPD. 2. Coronary artery disease. 3. Hypertension. 4. Colon cancer. 5. Prostatic hypertrophy. PAST SURGICAL HISTORY: 1. Right hemicolectomy. 2. Ventral hernia repair. SOCIAL HISTORY: Has not smoked in many years. Not consumed alcohol. FAMILY HISTORY: Remarkable for heart disease. REVIEW OF SYSTEMS: 12-point review of systems is otherwise negative. CURRENT MEDICATIONS: These were reviewed. Pertinent pulmonary medications include: 1. Perforomist. 2. Budesonide. PHYSICAL EXAMINATION: VITAL SIGNS: Temperature 98.2, pulse 81, respirations 24, O2 saturations 95% on 2 L. HEENT: Unremarkable. NECK: No JVD. CHEST: Clear to auscultation. CARDIAC: S1 and S2. Regular with 2/6 systolic murmur. ABDOMEN: Soft and nontender. No masses noted. Bowel sounds normoactive. EXTREMITIES: No clubbing, cyanosis, or edema. LABORATORY DATA: No discrete abnormalities noted. ASSESSMENT: 1. Small-bowel obstruction. 2. Stable chronic obstructive pulmonary disease. PLAN: Continue the Brovana and Perforomist as you are doing. The patient apparently cannot take albuterol. Job ID: [id number]
[2019-12-21] MEDS: Budesonide 0.25 MG/2 ML NEB NEB SCH (18:41)
[2019-12-21] MEDS ORDERED: Budesonide 0.5 MG/2 ML NEB NEB SCH (19:00)
[2019-12-21] MEDS ORDERED: Furosemide 40 MG/4 ML VIAL ONE (19:38)
[2019-12-21] MEDS ORDERED: Furosemide 20 MG TAB PO SCH (19:45)
[2019-12-21 19:58] LABS: Actual Bicarbonate (HCO3a) 21.5 mEq/L (22-28); Base Excess (BEa) -5.8 mEq/L (-2.0 to +3.0); CO2 Tension 49.5 mmHg (35.0-45.0); Calcium, Ionized (arterial) 1.14 mmol/L (1.12-1.30); Carboxyhemoglobin (COHb) 0.6 gm% (0.0-3.0); Hemoglobin (Hb) 13.9 g/dL (14.0-18.0); O2 Tension (PaO2), arterial 68.4 mmHg (> 70.0); Potassium - ABG Lab 3.73 mmol/L (3.70-5.30); pH, Arterial 7.26 (7.35-7.45)
[2019-12-21 20:00] LABS: Puncture Site RR
[2019-12-21 20:02] LABS: ALV-art Gradient 204.835 mmHg (0-20)
[2019-12-21 20:28] VITALS: BP 144/76
--- NOTE | 2019-12-21 21:07 | RAD ---
PORTABLE CHEST: History: Difficulty breathing, shortness of breath. Comparison: 2018 FINDINGS: There is cardiomegaly and mild vascular congestion. There are hazy interstitial and alveolar infiltra magan throughout both lungs, more pronounced in the right lower lung. Findings may represent mild inter stitial and alveolar edema, however, superimposed inflammatory infiltrates especially in the right tyler ng base is suspected. IMPRESSION: As above. POS: AGW
[2019-12-21] MEDS: cefTRIAXone\\ROCEPHIN 1 GM in Sodium Chloride 0.9% 100 ML IVPB SCH (23:31)
[2019-12-22] MEDS: metroNIDAZOLE 500 MG in Premix Bag 1 BAG IVPB SCH ×3 (05:11→22:02)
[2019-12-22] MEDS: Budesonide 0.5 MG/2 ML NEB NEB SCH ×2 (05:18→18:24)
[2019-12-22] MEDS: Arformoterol 15 MCG/2 ML NEB NEB SCH ×2 (05:19→18:23)
[2019-12-22] MEDS: Budesonide 0.25 MG/2 ML NEB NEB SCH ×2 (08:00→18:23)
[2019-12-22] MEDS: Enoxaparin Sodium 30 MG/0.3 ML SYRINGE SC SCH (08:56)
[2019-12-22] MEDS: Sodium Chloride 0.9% 1,000 ML IV SCH (08:59)
--- NOTE | 2019-12-22 09:56 | PRG ---
DATE OF SERVICE: SUBJECTIVE: He was apparently transferred back to [facility] last night with increasing shortness of breath. He says he is better today and has no acute complaints. He briefly wear BiPAP, but is off that this morning. He is very anxious to be discharged. Of note, his chest x-ray shows rather prominent bilateral infiltrates. Unfortunately, I do not have anything from his admission for comparison. There is an abdominal CT scan from 12/18 that does not show much of anything in his lower lobes of his lungs. An echocardiogram from 12/19, demonstrated some diastolic dysfunction. PHYSICAL EXAMINATION: GENERAL: This morning, he looks calm. No complaints. HEENT: Unremarkable. NECK: No JVD. LUNGS: Some inspiratory crackles at bases. CARDIAC: S1 and S2, regular. ABDOMEN: Soft. EXTREMITIES: No edema. LABORATORY DATA: No new labs were obtained today. ASSESSMENT: Acute hypoxic and hypercapnic respiratory failure requiring noninvasive ventilation-seems to be better after diuretics. RECOMMENDATIONS: 1. Stop IV fluids. 2. Repeat chest x-ray. 3. The patient is already on antibiotics. 4. I think he is going to have to be monitored in the hospital for today unless he shows dramatic improvement by this afternoon. Job ID: [id number]
[2019-12-22 10:43] LABS: #Eosinphils 0.1 thou/uL (0.0-0.7); #Lymphocytes 1.3 thou/uL (1.20-3.40); #Monocytes 1.3 thou/uL (0.11-0.59); #Neutrophils 8.3 thou/uL (1.40-6.50); %Basophils 0.2 % (0.0-1.0); %Eosinophils 0.5 % (0.0-10.0); %Lymphocytes 11.9 % (21.0-51.0); %Monocytes 11.9 % (0.0-10.0); %Neutrophils 75.4 % (42.0-75.0); Hemoglobin 11.9 g/dL (14.0-18.0); Mean Corpuscular HGB CONC 32.2 g/dL (32.0-36.0); Mean Corpuscular Hemoglobin 30.3 pg (27.0-31.0); Mean Corpuscular Volume 93.9 fL (78.0-98.0); Mean Platelet Volume 7.8 fL (7.4-10.4); Platelet Count 211 thou/uL (130-400); RBC Distribution Width 12.4 % (11.5-14.5); Red Blood Cell (RBC) Count 3.92 mill/uL (4.70-6.10)
[2019-12-22 11:07] LABS: Anion Gap 12 mmol/L (10-20); BUN (Urea Nitrogen) 20 mg/dL (8.4-25.7); Calc. Creatinine Clearance 52 mL/min (70-130); Calcium 7.9 mg/dL (7.8-10.44); Carbon Dioxide 27 mmol/L (23-31); Chloride 107 mmol/L (98-107); Estimated GFR-MDRD 57; Glucose 127 mg/dL (83-110); Potassium 3.1 mmol/L (3.5-5.1); Sodium 143 mmol/L (136-145)
--- NOTE | 2019-12-22 13:04 | PDOC.HOSPP ---
- Subjective Encounter Date: 12/22/19 Encounter Time: 07:45 Subjective: breathing better, got off bipap, says it helped him a lot no abd pain or nausea is tolerating oral diet - Objective Vital Signs & Weight: Vital Signs (12 hours) Temp Pulse Resp Pulse Ox 12/22/19 11:00 99.0 F 12/22/19 07:52 99 12/22/19 07:50 99.4 F 12/22/19 05:18 81 18 99 12/22/19 04:00 98 12/22/19 03:49 98.8 F 12/22/19 01:02 82 14 100 Weight Admit Weight 160 lb 0.88 oz Weight 160 lb 0.88 oz Most Recent Monitor Data Heart Rate from ECG 86 NIBP 100/65 NIBP BP-Mean 76 Respiration from ECG 21 SpO2 90 I&O: 12/21/19 12/22/19 12/23/19 06:59 06:59 06:59 Intake Total 1320 2900 Output Total 1250 725 Balance 70 2175 Result Diagrams: 12/22/19 10:32 12/22/19 10:32 Hospitalist ROS - Medication Medications: Active Medications Generic Name Dose Route Start Last Admin Trade Name Freq PRN Reason Stop Dose Admin Albuterol/Ipratropium 3 ml 12/19/19 01:00 12/22/19 05:21 Ipratropium/Albuterol Sulfate 3 Ml Neb NEB Not Given [id number] VIPUL Arformoterol Tartrate 15 mcg 12/21/19 06:30 12/22/19 05:19 Arformoterol 15 Mcg/2 Ml Neb NEB 15 mcg BID-RT VIPUL Administration Budesonide 0.5 mg 12/21/19 06:30 12/22/19 05:18 Budesonide 0.5 Mg/2 Ml Neb NEB 0.5 mg BID-RT VIPUL Administration Enoxaparin Sodium 30 mg 12/20/19 09:00 12/22/19 08:56 Enoxaparin Sodium 30 Mg/0.3 Ml Syringe SC 30 mg 0900 VIPUL Administration Metronidazole 500 mg/ Device 100 mls @ 100 mls/hr 12/19/19 06:00 12/22/19 05:11 IVPB 100 mls Q8HR VIPUL Administration Ceftriaxone Sodium 1 gm/ 100 mls @ 200 mls/hr 12/18/19 23:59 12/21/19 23:31 Sodium Chloride IVPB 100 mls Q24HR VIPUL Administration Ondansetron HCl 4 mg 12/18/19 22:57 12/21/19 21:01 Ondansetron Pf 4 Mg/2 Ml Vial IVP 4 mg Q6H PRN Administration Nausea/Vomiting Budesonide 0.25 Mg/2 0 each 12/21/19 18:30 12/22/19 08:00 Ml Neb NEB Not Given BID-RT VIPUL Throat Lozenges 1 liset 12/19/19 13:44 12/19/19 17:43 Cepastat Lozenges 1 Liset PO 1 liset Q2H PRN Administration Sore Throat - Exam General Appearance: awake alert Eye: PERRL, anicteric sclera ENT: no oropharyngeal lesions, moist mucosa Neck: supple, no JVD Heart: RRR, no murmur Respiratory: no wheezes, rales, rhonchi Gastrointestinal: soft, non-tender, non-distended, normal bowel sounds Extremities: no cyanosis, no edema Neurological: cranial nerve grossly intact, no focal deficits Psychiatric: normal affect, A&O x 3 Hosp A/P (1) Small bowel obstruction Code(s): K56.609 - UNSP INTESTNL OBST, UNSP TO PARTIAL VERSUS COMPLETE OBST Status: Acute (2) COPD (chronic obstructive pulmonary disease) Status: Chronic Qualifiers: COPD type: COPD with acute exacerbation Qualified Code(s): J44.1 - Chronic obstructive pulmonary disease with (acute) exacerbation (3) BPH (benign prostatic hyperplasia) Code(s): N40.0 - BENIGN PROSTATIC HYPERPLASIA WITHOUT LOWER URINRY TRACT SYMP Status: Chronic Qualifiers: Lower urinary tract symptom presence: symptoms absent Qualified Code(s): N40.0 - Benign prostatic hyperplasia without lower urinary tract symptoms (4) CAD (coronary artery disease) Code(s): I25.10 - ATHSCL HEART DISEASE OF [place] CORONARY ARTERY W/O ANG PCTRS Status: Chronic Qualifiers: Coronary Disease-Associated Artery/Lesion type: [place] artery [place] vs. transplanted heart: [place] heart (5) Hypertension Code(s): I10 - ESSENTIAL (PRIMARY) HYPERTENSION Status: Chronic Qualifiers: Hypertension type: essential hypertension Qualified Code(s): I10 - Essential (primary) hypertension - Plan got volume overloaded, better after lasix yesterday evening, one more dose now, has normal ef improving sbo to ambulate as tolerated in hallway diet per gen surg adv, on liq diet now echo shows normal ef, there is aortic valve sclerosis on obvious stenosis continue ceftriaxone, flagyl, iv fluids performist and budesonide inhalers, may use home meds, he does not like substitutions albuterol caused break out over his lips, tongue and inner cheeks which makes it hard for wearing dentures per patient.
[2019-12-22] MEDS ORDERED: Furosemide 40 MG/4 ML VIAL SLOW IVP SCH (13:15)
--- NOTE | 2019-12-22 13:27 | PDOC.GSPN ---
Surgery Progress Note: Subj - Subjective Narrative: Patient feels really good. He says he is breathing much better since using the positive airway pressure machine. He is back on nasal cannula now. His abdomen is soft nondistended nontender and he is tolerating clear liquid diet without nausea or pain. He is passing gas and having bowel movements. I am advancing him to a full liquid diet. If he tolerates this he can go home from my standpoint. I would recommend he stay on full liquid diet for couple more days and then advance to a soft diet for a few more days and then resume her regular diet. He can follow-up in my clinic on an as-needed basis. Surgery Progress Note: Obj - Vital signs Vital signs: Vital Signs - Most Recent Temp Pulse Resp BP Pulse Ox 99.0 F 81 18 144/76 H 99 12/22/19 11:00 12/22/19 05:18 12/22/19 05:18 12/21/19 19:54 12/22/19 07:52 Surgery Progress Note: Results - Labs Result Diagrams: 12/22/19 10:32 12/22/19 10:32 Lab results: Laboratory Results - last 12 hr 12/22/19 12/22/19 12/22/19 10:32 10:32 10:32 WBC 11.0 H RBC 3.92 L Hgb 11.9 L Hct 36.8 L MCV 93.9 MCH 30.3 MCHC 32.2 RDW 12.4 Plt Count 211 MPV 7.8 Neutrophils % 75.4 H Lymphocytes % 11.9 L Monocytes % 11.9 H Eosinophils % 0.5 Basophils % 0.2 Neutrophils # 8.3 H Lymphocytes # 1.3 Monocytes # 1.3 H Eosinophils # 0.1 Basophils # 0.0 Sodium 143 Potassium 3.1 L Chloride 107 Carbon Dioxide 27 Anion Gap 12 BUN 20 Creatinine 1.23 Estimated GFR (MDRD) 57 Glucose 127 H Calcium 7.9 B-Natriuretic Peptide 1270.4 H
[2019-12-22] MEDS: Potassium Chloride 20 MEQ TAB PO SCH ×2 (14:01→20:12)
--- NOTE | 2019-12-22 14:05 | RAD ---
CHEST 1 VIEW PORTABLE: Date: 12/22/2019 HISTORY: Follow-up pneumonia. COMPARISON: 12/21/2019. FINDINGS: There is some persistent but improving patchy bilateral interstitial and alveolar opacity changes, pa rticularly in the upper and mid lung zones, with persistent more confluent parenchymal changes in the right lower lobe with some right pleural effusion, and increased markings in the left base. No signi ficant new process. IMPRESSION: Bilateral improving interstitial and alveolar opacity changes with persistent parenchymal changes, pa rticularly in the bases, right greater than left. Continue short-term follow-up. POS: RRE
[2019-12-23] MEDS: cefTRIAXone\\ROCEPHIN 1 GM in Sodium Chloride 0.9% 100 ML IVPB SCH (00:57)
[2019-12-23] MEDS: Potassium Chloride 20 MEQ TAB PO SCH (01:00)
[2019-12-23 03:57] LABS: #Eosinphils 0.3 thou/uL (0.0-0.7); #Lymphocytes 1.2 thou/uL (1.20-3.40); %Lymphocytes 14.3 % (21.0-51.0); %Monocytes 11.9 % (0.0-10.0); %Neutrophils 70.8 % (42.0-75.0); Hemoglobin 11.7 g/dL (14.0-18.0); Mean Corpuscular HGB CONC 32.5 g/dL (32.0-36.0); Mean Corpuscular Hemoglobin 30.6 pg (27.0-31.0); Mean Corpuscular Volume 94.1 fL (78.0-98.0); Mean Platelet Volume 8.1 fL (7.4-10.4); Platelet Count 194 thou/uL (130-400); RBC Distribution Width 12.4 % (11.5-14.5); Red Blood Cell (RBC) Count 3.82 mill/uL (4.70-6.10); White Blood Cell (WBC) Count 8.5 thou/uL (4.8-10.8)
[2019-12-23 04:22] LABS: Anion Gap 14 mmol/L (10-20); BUN (Urea Nitrogen) 16 mg/dL (8.4-25.7); Calc. Creatinine Clearance 61 mL/min (70-130); Calcium 7.9 mg/dL (7.8-10.44); Carbon Dioxide 23 mmol/L (23-31); Chloride 107 mmol/L (98-107); Estimated GFR-MDRD 68; Glucose 110 mg/dL (83-110); Potassium 3.8 mmol/L (3.5-5.1); Sodium 140 mmol/L (136-145)
[2019-12-23] MEDS: metroNIDAZOLE 500 MG in Premix Bag 1 BAG IVPB SCH ×2 (05:21→13:40)
[2019-12-23] MEDS: Budesonide 0.25 MG/2 ML NEB NEB SCH (08:06)
[2019-12-23] MEDS: Arformoterol 15 MCG/2 ML NEB NEB SCH (08:08)
[2019-12-23] MEDS: Budesonide 0.5 MG/2 ML NEB NEB SCH (08:11)
[2019-12-23] MEDS: Enoxaparin Sodium 30 MG/0.3 ML SYRINGE SC SCH (08:30)
--- NOTE | 2019-12-23 13:45 | PDOC.HOSPP ---
- Subjective Encounter Date: 12/23/19 Encounter Time: 12:00 Subjective: was on bipap for 2 hrs overnight, says he feels good when he is on it currently on nasal canula is tolerating oral diet - Objective Vital Signs & Weight: Vital Signs (12 hours) Temp Pulse Resp Pulse Ox 12/23/19 11:00 98.4 F 12/23/19 08:11 84 18 95 12/23/19 08:08 84 18 95 12/23/19 08:00 96 12/23/19 07:00 99.2 F 12/23/19 03:00 98.9 F Weight Admit Weight 160 lb 0.88 oz Weight 160 lb 0.88 oz Most Recent Monitor Data Heart Rate from ECG 93 NIBP 115/80 NIBP BP-Mean 91 Respiration from ECG 19 SpO2 88 I&O: 12/22/19 12/23/19 12/24/19 06:59 06:59 06:59 Intake Total 2900 2177 Output Total 725 400 Balance 2175 1777 Result Diagrams: 12/23/19 03:21 12/23/19 03:21 Hospitalist ROS - Medication Medications: Active Medications Generic Name Dose Route Start Last Admin Trade Name Freq PRN Reason Stop Dose Admin Albuterol/Ipratropium 3 ml 12/19/19 01:00 12/23/19 08:07 Ipratropium/Albuterol Sulfate 3 Ml Neb NEB Not Given [id number] VIPUL Arformoterol Tartrate 15 mcg 12/21/19 06:30 12/23/19 08:08 Arformoterol 15 Mcg/2 Ml Neb NEB 15 mcg BID-RT VIPUL Administration Budesonide 0.5 mg 12/21/19 06:30 12/23/19 08:11 Budesonide 0.5 Mg/2 Ml Neb NEB 0.5 mg BID-RT VIPUL Administration Enoxaparin Sodium 30 mg 12/20/19 09:00 12/23/19 08:30 Enoxaparin Sodium 30 Mg/0.3 Ml Syringe SC 30 mg 0900 VIPUL Administration Metronidazole 500 mg/ Device 100 mls @ 100 mls/hr 12/19/19 06:00 12/23/19 13:40 IVPB 100 mls Q8HR VIPUL Administration Ceftriaxone Sodium 1 gm/ 100 mls @ 200 mls/hr 12/18/19 23:59 12/23/19 00:57 Sodium Chloride IVPB 100 mls Q24HR VIPUL Administration Ondansetron HCl 4 mg 12/18/19 22:57 12/21/19 21:01 Ondansetron Pf 4 Mg/2 Ml Vial IVP 4 mg Q6H PRN Administration Nausea/Vomiting Budesonide 0.25 Mg/2 0 each 12/21/19 18:30 12/23/19 08:06 Ml Neb NEB Not Given BID-RT VIPUL Throat Lozenges 1 liset 12/19/19 13:44 12/19/19 17:43 Cepastat Lozenges 1 Liset PO 1 liset Q2H PRN Administration Sore Throat - Exam General Appearance: awake alert Eye: PERRL, anicteric sclera ENT: no oropharyngeal lesions, moist mucosa Neck: supple, no JVD Heart: RRR, no murmur Respiratory: no wheezes, rales, rhonchi Gastrointestinal: soft, non-tender, non-distended, normal bowel sounds, no guarding, no rigidity Extremities: no cyanosis, no edema Neurological: cranial nerve grossly intact, no focal deficits Psychiatric: normal affect, A&O x 3 Hosp A/P (1) Small bowel obstruction Code(s): K56.609 - UNSP INTESTNL OBST, UNSP TO PARTIAL VERSUS COMPLETE OBST Status: Resolved (2) COPD (chronic obstructive pulmonary disease) Status: Chronic Qualifiers: COPD type: COPD with acute exacerbation Qualified Code(s): J44.1 - Chronic obstructive pulmonary disease with (acute) exacerbation (3) BPH (benign prostatic hyperplasia) Code(s): N40.0 - BENIGN PROSTATIC HYPERPLASIA WITHOUT LOWER URINRY TRACT SYMP Status: Chronic Qualifiers: Lower urinary tract symptom presence: symptoms absent Qualified Code(s): N40.0 - Benign prostatic hyperplasia without lower urinary tract symptoms (4) CAD (coronary artery disease) Code(s): I25.10 - ATHSCL HEART DISEASE OF [place] CORONARY ARTERY W/O ANG PCTRS Status: Chronic Qualifiers: Coronary Disease-Associated Artery/Lesion type: [place] artery [place] vs. transplanted heart: [place] heart (5) Hypertension Code(s): I10 - ESSENTIAL (PRIMARY) HYPERTENSION Status: Chronic Qualifiers: Hypertension type: essential hypertension Qualified Code(s): I10 - Essential (primary) hypertension - Plan got volume overloaded, better after lasix and diuresis, has normal EF. sbo resolved, had multiple loose BM's to ambulate as tolerated in hallway diet per gen surg adv, on liq diet now echo shows normal ef, there is aortic valve sclerosis on obvious stenosis performist and budesonide inhalers, may use home meds albuterol causes break out over his lips, tongue and inner cheeks which makes it hard for wearing dentures likely dc plan in am if cleared by may tx to med floor to continued monitoring (was on 2 hrs of bipap last night)
--- NOTE | 2019-12-23 13:52 | PRG ---
DATE OF SERVICE: 12/23/2019 SUBJECTIVE: The patient is feeling better and wants to go home. However, he did use the BiPAP last night. OBJECTIVE: VITAL SIGNS: His temperature is 98.4, pulse 93, blood pressure 115/80, O2 saturation 88%. HEENT: Unremarkable. NECK: No adenopathy or JVD. LUNGS: Diminished breath sounds throughout. CARDIAC: S1 and S2, regular. ABDOMEN: Protuberant. EXTREMITIES: No edema. LABORATORY DATA: White cell 8.5, hematocrit 35.9, and platelet count 194. Sodium 140, BUN 16, creatinine 1.0, and glucose 110. ASSESSMENT: 1. Chronic respiratory failure secondary to chronic obstructive pulmonary disease. 2. Ileus. PLAN: Because of the patient's chronic respiratory failure secondary to COPD, I am prescribing a Trilogy ventilator for treatment of his chronic respiratory failure. The respiratory failure is solely due to COPD and traditional CPAP or BiPAP would not work in treating this. Therefore, I am prescribing Trilogy ventilator at settings that are appropriate for treatment of this. Hopefully, this can be set up today and he can go home afterward. Job ID: [id number]
[2019-12-23 15:37] VITALS: TEMP 99.2
[2019-12-23] MEDS ORDERED: Rosuvastatin 20 MG TAB PO SCH (17:00)
[2019-12-23] MEDS ORDERED: Cefdinir 300 MG CAP PO SCH (21:00)
[2019-12-23] MEDS ORDERED: Finasteride 5 MG TAB PO SCH (21:00)
[2019-12-24] MEDS ORDERED: Furosemide 40 MG TAB PO SCH (07:30)
[2019-12-24] MEDS ORDERED: Tamsulosin HCl 0.4 MG CAP PO SCH (09:00)
[2019-12-24] MEDS ORDERED: Aspirin 81 mg Enteric Coated Tablet PO SCH (09:00)
--- NOTE | 2019-12-24 12:25 | DIS ---
DATE OF ADMISSION: 12/18/2019 DATE OF DISCHARGE: 12/23/2019 DISCHARGE DISPOSITION: Home. PRIMARY DISCHARGE DIAGNOSES: Acute on chronic respiratory failure with hypoxia secondary to chronic obstructive pulmonary disease exacerbation; small bowel obstruction, resolved; coronary artery disease; benign prostatic hyperplasia; hypertension. PROCEDURES DONE DURING HOSPITALIZATION: Abdominal pelvic CAT scan with contrast done on admission was suspicious for small bowel obstruction. Echo with 2D Doppler showed ejection fraction of 50% to 55%, aortic valve sclerosis was seen but no stenosis. H and H are 11 and 35, platelet count 194, white count of 8, MCV is 94. Discharge BUN and creatinine are 16 and 1.0. BNP was 1270. Albumin is 4.4. DISCHARGE MEDICATIONS: 1. Crestor 20 mg p.o. daily. 2. Aspirin 81 mg p.o. daily. 3. Enalapril 10 mg p.o. daily. 4. Flomax 0.4 mg p.o. daily. 5. Perforomist nebulizer twice daily. 6. Proscar 5 mg p.o. at bedtime. 7. Pulmicort nebulizer twice daily. 8. Potassium chloride 20 mEq p.o. on alternate days for a total of 3 tablets. 9. Lasix 40 mg daily for a total of 6 days. 10. Omnicef 300 mg p.o. twice daily for 5 days. ALLERGIES: ALBUTEROL. INPATIENT CONSULT: Dr. Carlson for Pulmonology, Dr. Curran for General Surgery. DISCHARGE PLAN: The patient to follow up with Dr. Andino, his garment worker, in 1 week. He needs to follow up with Dr. John Nix, his primary care physician in 1 week. BRIEF COURSE DURING HOSPITALIZATION: The patient initially came in on the 17 of December with complaints of abdominal pain and nausea. Initial CAT scan was suspicious for small bowel obstruction. He has had NG tube today in with low-intermittent suction done. The patient responded well to conservative measures and medical management of small bowel obstruction. During the course of his stay, the patient developed wheezing and was in COPD exacerbation. There was also suspicion for possible right lung pneumonia. He was placed on broad-spectrum antibiotics. He is allergic to albuterol, which causes breakout of his lips and oral cavity, which makes it hard for him to chew with dentures. He has known history of end-stage COPD. He was evaluated by Dr. Carlson as well for Pulmonology. The patient was briefly in ICU on BiPAP. In view of his chronic lung disease, Dr. Carlson has arranged Trilogy ventilator at home. He is tolerating oral solid diet prior to discharge. He has been cleared by all specialists for discharge. Please see a [id number] documentation for the day of discharge on [employer]. Job ID: [id number]
== END 2019-12-23 17:14 | disposition home or self-care (01) | DRG 388 ==
LOC: ERS 18:38 → SURG A 22:01 → IMCU/EMU 12-21 20:41
PROVIDERS: ADMIT Internal Medicine; ATTEND Internal Medicine
PROC: 0D9670Z Drainage of Stomach with Drainage Device, Via Natural or Artificial Opening (ICD-10-PCS; principal; 2019-12-18)
PROC: 5A09357 Assistance with Respiratory Ventilation, Less than 24 Consecutive Hours, Continuous Positive Airway Pressure (ICD-10-PCS; 2019-12-21)
DX: K56.609 Unspecified intestinal obstruction, unspecified as to partial versus complete obstruction (principal); J96.01 Acute respiratory failure with hypoxia; J96.02 Acute respiratory failure with hypercapnia; J18.9 Pneumonia, unspecified organism; J44.1 Chronic obstructive pulmonary disease with (acute) exacerbation; J44.0 Chronic obstructive pulmonary disease with (acute) lower respiratory infection; I25.10 Atherosclerotic heart disease of native coronary artery without angina pectoris; I10 Essential (primary) hypertension; K56.7 Ileus, unspecified; K59.00 Constipation, unspecified; N40.0 Benign prostatic hyperplasia without lower urinary tract symptoms; Z87.891 Personal history of nicotine dependence; Z79.899 Other long term (current) drug therapy; Z79.82 Long term (current) use of aspirin; Z85.038 Personal history of other malignant neoplasm of large intestine; Z88.8 Allergy status to other drugs, medicaments and biological substances; Z90.49 Acquired absence of other specified parts of digestive tract; Z99.81 Dependence on supplemental oxygen; Z95.5 Presence of coronary angioplasty implant and graft
CPT/HCPCS: 36415; 71045; 74018; 74177; 80048; 80053; 81003; 82805; 83690; 83880; 85025; 87635; 90471; 90662; 93005; 93306; 94640; 94660; 94760; 96361; 96374; 96375; G0008; J0696; J1644; J1650; J1940; J2250; J2405; J3490; J7620; J7626; Q9967; S0028; U0003

== ENCOUNTER 2020-01-19 10:25 | Outpatient (CLI) | payer MEDICARE, OTHER ==
--- NOTE | 2020-01-19 13:06 | RAD ---
PA AND LATERAL CHEST: Date: 01/19/2020 COMPARISON: 12/22/2019 exam. HISTORY: Pneumonia. FINDINGS: The bibasilar infiltrates noted on the previous exam have resolved. There are chronic lung changes se en. No acute process identified. IMPRESSION: Chronic appearing lung change. No acute process. POS: KIKE
== END 2020-01-19 10:26 | disposition home or self-care (01) ==
LOC: BICRAD 10:25
PROVIDERS: ATTEND Family Medicine
DX: R06.00 Dyspnea, unspecified (principal); R91.8 Other nonspecific abnormal finding of lung field
CPT/HCPCS: 71046

== ENCOUNTER 2020-05-25 14:06 | Inpatient (IN) | payer MEDICARE, OTHER ==
[2020-05-25 16:06] LABS: #Eosinphils 0.2 thou/uL (0.0-0.7); #Lymphocytes 1.9 thou/uL (1.20-3.40); #Monocytes 0.6 thou/uL (0.11-0.59); #Neutrophils 3.7 thou/uL (1.40-6.50); %Basophils 0.5 % (0.0-1.0); %Eosinophils 3.5 % (0.0-10.0); %Monocytes 9.5 % (0.0-10.0); %Neutrophils 57.5 % (42.0-75.0); Hemoglobin 12.7 g/dL (14.0-18.0); Mean Corpuscular HGB CONC 33.1 g/dL (32.0-36.0); Mean Corpuscular Hemoglobin 30.8 pg (27.0-31.0); Mean Corpuscular Volume 93.2 fL (78.0-98.0); Mean Platelet Volume 7.2 fL (7.4-10.4); Platelet Count 226 thou/uL (130-400); RBC Distribution Width 12.6 % (11.5-14.5); Red Blood Cell (RBC) Count 4.14 mill/uL (4.70-6.10); White Blood Cell (WBC) Count 6.5 thou/uL (4.8-10.8)
[2020-05-25 16:27] LABS: ALT (SGPT) 21 U/L (8-55); AST (SGOT) 25 U/L (5-34); Albumin 4.1 g/dL (3.4-4.8); Alkaline Phosphatase 74 U/L (40-110); Anion Gap 14 mmol/L (10-20); BUN (Urea Nitrogen) 15 mg/dL (8.4-25.7); Bilirubin, Total 0.4 mg/dL (0.2-1.2); Calc. Creatinine Clearance 0 mL/min (70-130); Calcium 9.1 mg/dL (7.8-10.44); Carbon Dioxide 25 mmol/L (23-31); Chloride 101 mmol/L (98-107); Globulin 3.2 g/dL (2.4-3.5); Glucose 107 mg/dL (83-110); Potassium 4.3 mmol/L (3.5-5.1); Protein, Total 7.3 g/dL (5.8-8.1); Sodium 136 mmol/L (136-145)
[2020-05-25 16:49] LABS: CKMB 2.2 ng/mL (0-6.6)
[2020-05-25 16:57] LABS: Bacteria/HPF None Seen HPF (None Seen); Bilirubin Negative (Negative); Blood, Urine Trace (Negative); Clarity Clear (Clear); Glucose, Urine (Dipstick) Normal (Negative); Ketone, Urine Negative (Negative); Leukocyte Negative Leu/uL (Negative); Nitrite Negative (Negative); Protein, Urine (Dipstick) Negative (Neg-Trace); RBC/HPF 0-3 HPF (0-3); Specific Gravity, Urine 1.008 (1.002-1.036); Squamous Epithelial None Seen HPF (0-3); Urobilinogen Normal mg/dL (Less than 2); WBC/HPF 0-3 HPF (0-3); pH, Urine 5.5 (5.0-9.0)
[2020-05-25] MEDS ORDERED: Aspirin Chewable 81 MG TAB ONE ×4 (17:36→17:40)
[2020-05-25] MEDS ORDERED: Enoxaparin Sodium 30 MG/0.3 ML SYRINGE ONE (17:38)
[2020-05-25] MEDS ORDERED: Enoxaparin Sodium 60 MG/0.6 ML SYRINGE ONE (17:38)
[2020-05-25 19:08] LABS: Troponin I 0.026 ng/mL (< 0.028)
[2020-05-25] MEDS ORDERED: Acetaminophen 325 MG TAB PO PRN (19:18)
[2020-05-25] MEDS ORDERED: Acetaminophen 650 MG Suppository PR PRN (19:18)
[2020-05-25] MEDS: Famotidine/PF 20 mg/2ml Vial SLOW IVP SCH (21:59)
[2020-05-25 22:41] LABS: Troponin I 0.034 ng/mL (< 0.028)
[2020-05-26 04:50] LABS: #Basophils 0.1 thou/uL (0.0-0.2); #Eosinphils 0.4 thou/uL (0.0-0.7); #Lymphocytes 2.4 thou/uL (1.20-3.40); #Monocytes 0.7 thou/uL (0.11-0.59); #Neutrophils 2.4 thou/uL (1.40-6.50); %Eosinophils 6.9 % (0.0-10.0); %Lymphocytes 40.7 % (21.0-51.0); %Neutrophils 40.5 % (42.0-75.0); Hemoglobin 11.4 g/dL (14.0-18.0); Mean Corpuscular HGB CONC 32.9 g/dL (32.0-36.0); Mean Corpuscular Hemoglobin 30.5 pg (27.0-31.0); Mean Corpuscular Volume 92.8 fL (78.0-98.0); Mean Platelet Volume 7.7 fL (7.4-10.4); Platelet Count 201 thou/uL (130-400); RBC Distribution Width 12.5 % (11.5-14.5); Red Blood Cell (RBC) Count 3.75 mill/uL (4.70-6.10); White Blood Cell (WBC) Count 5.9 thou/uL (4.8-10.8)
[2020-05-26 05:08] LABS: Anion Gap 12 mmol/L (10-20); BUN (Urea Nitrogen) 12 mg/dL (8.4-25.7); Calc. Creatinine Clearance 0 mL/min (70-130); Calcium 8.6 mg/dL (7.8-10.44); Carbon Dioxide 25 mmol/L (23-31); Chloride 104 mmol/L (98-107); Glucose 94 mg/dL (83-110); Potassium 3.9 mmol/L (3.5-5.1); Sodium 137 mmol/L (136-145)
[2020-05-26 06:47] LABS: SARS-CoV-2 PCR by NAA Not Detected (NotDetected)
[2020-05-26] MEDS: Famotidine/PF 20 mg/2ml Vial SLOW IVP SCH ×2 (08:41→20:39)
[2020-05-26] MEDS ORDERED: Meclizine HCl 25 MG TAB PO PRN (13:31)
[2020-05-26] MEDS ORDERED: Meclizine HCl 25 MG TAB PO SCH (13:45)
[2020-05-26] MEDS ORDERED: Amlodipine 5 MG TAB PO SCH (13:45)
[2020-05-26] MEDS ORDERED: Rosuvastatin 20 MG TAB PO SCH (21:00)
[2020-05-26] MEDS ORDERED: Finasteride 5 MG TAB PO SCH (21:00)
[2020-05-27 07:42] VITALS: BP 135/64; TEMP 97.9
[2020-05-27] MEDS: Famotidine/PF 20 mg/2ml Vial SLOW IVP SCH (08:14)
[2020-05-27] MEDS ORDERED: Lisinopril 20 MG TAB PO SCH (09:00)
[2020-05-27] MEDS ORDERED: Tamsulosin HCl 0.4 MG CAP PO SCH (09:00)
[2020-05-27] MEDS ORDERED: Amlodipine 5 MG TAB PO SCH (09:00)
[2020-05-27] MEDS ORDERED: Aspirin 325 mg Enteric Coated Tablet PO SCH (09:00)
== END 2020-05-27 11:00 | disposition home or self-care (01) | DRG 305 ==
LOC: ERS 14:06 → 2SW 18:04 → OBSVTOIN 05-26 18:09
PROVIDERS: ADMIT Internal Medicine; ATTEND Family Medicine
DX: I16.0 Hypertensive urgency (principal); J96.11 Chronic respiratory failure with hypoxia; Z20.822 Contact with and (suspected) exposure to COVID-19; J44.9 Chronic obstructive pulmonary disease, unspecified; I08.3 Combined rheumatic disorders of mitral, aortic and tricuspid valves; H81.10 Benign paroxysmal vertigo, unspecified ear; I10 Essential (primary) hypertension; I25.10 Atherosclerotic heart disease of native coronary artery without angina pectoris; N40.0 Benign prostatic hyperplasia without lower urinary tract symptoms; Z99.81 Dependence on supplemental oxygen; Z88.8 Allergy status to other drugs, medicaments and biological substances; Z79.82 Long term (current) use of aspirin; Z79.51 Long term (current) use of inhaled steroids; Z79.899 Other long term (current) drug therapy; Z85.038 Personal history of other malignant neoplasm of large intestine; Z95.5 Presence of coronary angioplasty implant and graft; Z87.891 Personal history of nicotine dependence
CPT/HCPCS: 36415; 71045; 80048; 80053; 81001; 81003; 81015; 82553; 83735; 83880; 84484; 85025; 87635; 93005; 93306; 93880; 96374; 96376; 99214; G0378; G0463; J1650; S0028; U0003; U0005

== ENCOUNTER 2022-10-25 13:14 | Outpatient (CLI) | payer MEDICARE, OTHER | END 2022-10-25 13:15 | disposition home or self-care (01) | LOC: RAD 13:14 | PROVIDERS: ATTEND Internal Medicine Critical Care Medicine | DX: R06.00 Dyspnea, unspecified (principal) | CPT/HCPCS: 71046 ==